=== PATIENT | female | born 1970 | race Caucasian/White ===

== ENCOUNTER 2017-03-28 21:03 | Observation (INO) | payer OTHER, BC ==
--- NOTE | 2017-03-28 21:54 | EDM.PDOC ---
ED HPI GENERAL MEDICAL PROBLEM - General Chief Complaint: Cardiovascular Problem Stated Complaint: RACING HEART Time Seen by Provider: 03/28/17 21:14 Source of Information: Reports: Patient, RN Notes Reviewed History Limitations: Reports: No Limitations - History of Present Illness INITIAL COMMENTS - FREE TEXT/NARRATIVE: The patient states that she started feeling poorly around , 03/18/2017, with nausea, chills, feeling feverish, even though her temperature was normal. She was seen at the walk-in clinic on 03/21/2017, where blood work was done, and was apparently normal. The patient was diagnosed with a viral illness. Hydration and vitamin C were recommended. If her symptoms do not improve, she was to follow-up with her PCP, Eboni Grant. The patient states that she did as she was instructed, but her symptoms did not improve. She noticed that her urine output seemed low, despite aggressive hydration. She was then seen by Jerilyn Brown this past 03/23/2017. No tests were done, but oral magnesium was recommended because, according to the patient , Ms. Brown speculated that the patient's magnesium was low. The patient states that she continued to do as instructed, but her symptoms continued, therefore she saw her PCP, Eboni Grant, this past Wednesday, 2016. She states that while in the lobby, she developed the sensation of her heart racing, lasting about 30-45 seconds. It occurred again in the examination room, lasting about 1 minute. An ECG was performed, which was reportedly normal. Blood work was performed which apparently demonstrated hypokalemia. A 48 hour Holter monitor was placed, which the patient turned in today. The patient states that she continues to have episodes of heart racing, often lasting about 1.5 minutes. She also feels her body jerking. She feels cold. Her tongue has been tingling. She has had tingling of her fingers and hands when her heart rate feels elevated. She feels like she is walking on rubber legs. No prior similar symptoms. The patient reports that she has a history of suspected asthma, and is prescribed a Ventolin MDI. Her last use was 03/23/2017. Here in the ED, it is noted that the patient's oxygen saturation is 100% on room air. Treatments COMMODITIES BROKER: Reports: Aspirin - Related Data Allergies Allergy/AdvReac Type Severity Reaction Status Date / Time bacitracin Allergy Rash Verified 03/28/17 21:20 [From Neosporin ([id number])] bacitracin zinc Allergy Rash Verified 03/28/17 21:20 [From Neosporin ([id number])] neomycin sulfate Allergy Rash Verified 03/28/17 21:20 [From Neosporin ([id number])] polymyxin B Allergy Rash Verified 03/28/17 21:20 [From Neosporin ([id number])] Home Meds: Home Meds SUMAtriptan [Imitrex Pen Injector Kit] 6 mg SQ ASDIRECTED #1 ml 07/14/14 [Rx] Albuterol Inhaler. 2 inh PO Q4HR PRN 07/19/16 [History] Potassium Chloride 10 meq PO DAILY 03/28/17 [History] atorvaSTATin Calcium [Atorvastatin Calcium] 10 mg PO DAILY 03/28/17 [History] Past Medical History Cardiovascular History: Reports: High Cholesterol Respiratory History: Reports: Asthma (suspected, not confirmed) Oncologic (Cancer) History: Reports: Malignant Melanoma (left face) - Past Surgical History HEENT Surgical History: Reports: Oral Surgery ([place] teeth extraction) Female Surgical History: Reports: Tubal Ligation Oncologic Surgical History: Reports: Other (See Below) (Melanoma excised from left face May 2007) Social & Family History - Family History Family Medical History: Noncontributory - Tobacco Use Smoking Status *Q: Current Every Day Smoker Years of Tobacco use: 15 Packs/Tins Daily: 0.3 Packs/Tins Daily Comment: Down from 07/13 ppd - Caffeine Use Caffeine Use: Reports: Soda - Alcohol Use Alcohol Use History: Yes Days Per Week of Alcohol Use: 1 Number of Drinks Per Day: 0 Total Drinks Per Week: 0 Alcohol Use Frequency: Rarely - Recreational Drug Use Recreational Drug Use: No - Living Situation & Occupation Living situation: Reports: (), with Family (daughter) Occupation: Employed ([employer]) ED ROS GENERAL - Review of Systems Review Of Systems: See Below Constitutional: Reports: Chills, Malaise HEENT: Reports: No Symptoms Respiratory: Reports: No Symptoms Cardiovascular: Reports: Palpitations Endocrine: Reports: No Symptoms GI/Abdominal: Reports: Nausea : Reports: No Symptoms Musculoskeletal: Reports: No Symptoms Skin: Reports: No Symptoms Neurological: Reports: Tingling, Weakness Psychiatric: Reports: No Symptoms Hematologic/Lymphatic: Reports: No Symptoms Immunologic: Reports: No Symptoms ED EXAM, GENERAL - Physical Exam Exam: See Below Exam Limited By: No Limitations General Appearance: Alert, WD/WN, No Apparent Distress, Anxious Eye Exam: Bilateral Eye: Normal Inspection Ears: Normal External Exam, Hearing Grossly Normal Nose: Normal Inspection, No Blood Throat/Mouth: Normal Inspection, Normal Lips, Normal Voice, No Airway Compromise Head: Atraumatic, Normocephalic Neck: Normal Inspection, Full Range of Motion Respiratory/Chest: No Respiratory Distress, Lungs Clear, Normal Breath Sounds, No Accessory Muscle Use Cardiovascular: Normal Peripheral Pulses, Regular Rate, Rhythm, No Gallop, No JVD, No Murmur, No Rub Peripheral Pulses: 4+: Radial (L), Radial (R) GI/Abdominal: Normal Bowel Sounds, Soft, Non-Tender, No Organomegaly, No Distention, No Abnormal Bruit, No Mass (Female) Exam: Deferred Rectal (Female) Exam: Deferred Back Exam: Normal Inspection, Full Range of Motion, NT Extremities: Normal Inspection, Normal Range of Motion, No Pedal Edema, Normal Capillary Refill Neurological: Alert, Oriented, Normal Cognition, No Motor/Sensory Deficits Psychiatric: Normal Affect, Anxious Skin Exam: Warm, Intact, Normal Color, No Rash, Diaphoretic Lymphatic: No Adenopathy EKG INTERPRETATION EKG Date: 03/28/17 Time: 21:26 Rhythm: NSR Rate (Beats/Min): 92 [place]: Normal P-Wave: Present QRS: Normal ST-T: Normal QT: Normal Comparison: NA - No Prior EKG Course - Vital Signs Last Recorded V/S: Last Vital Signs Temp 36.2 C 03/28/17 21:12 Pulse 66 03/29/17 01:44 Resp 20 03/29/17 01:44 BP 125/70 03/29/17 01:44 Pulse Ox 99 03/29/17 01:44 Orthostatic Blood Pressure [ 120/85 Standing] Orthostatic Blood Pressure [ 119/83 Supine] - Orders/Labs/Meds Orders: Active Orders 24 hr Category Date Time Status EKG 12 Lead [EKG Documentation Completion] [RC] STAT Care 03/28/17 21:32 Active Orthostatic Vital Signs [RC] STAT Care 03/28/17 21:46 Active Orthostatic Vital Signs [RC] STAT Care 03/28/17 22:38 Active Orthostatic Vital Signs [RC] STAT Care 03/28/17 23:58 Active Chest 2V [CR] Stat Exams 03/28/17 21:46 Taken CULTURE URINE [RM] Stat Lab 03/29/17 00:37 Received Medication Orders Hydromorphone HCl (Dilaudid) 1 mg IVPUSH Q4H PRN PRN Reason: Pain Lorazepam (Ativan) 1 mg IVPUSH Q4H PRN PRN Reason: Anxiety Labs: Laboratory Tests 03/28/17 03/28/17 03/28/17 Range/Units 21:18 21:18 21:18 WBC 10.71 H (3.98-10.04) K/mm3 RBC 5.21 (3.98-5.22) M/mm3 Hgb 15.8 H (11.2-15.7) gm/L Hct 45.9 H (34.1-44.9) % MCV 88.1 (79.4-94.8) fl MCH 30.3 (25.6-32.2) pg MCHC 34.4 (32.2-35.5) g/dl RDW Std Deviation 42.7 (36.4-46.3) fL Plt Count 355 (182-369) K/mm3 MPV 11.9 (9.4-12.3) fl Neutrophils % (Manual) 75 H (40-60) % Band Neutrophils % 0 (0-10) % Lymphocytes % (Manual) 14 L (20-40) % Atypical Lymphs % 3 % Monocytes % (Manual) 6 (2-10) % Eosinophils % (Manual) 1 (0.7-5.8) % Basophils % (Manual) 1 (0.1-1.2) Platelet Estimate Adequate Plt Morphology Comment Normal RBC Morph Comment Normal PT 9.9 (8.0-13.0) SECONDS INR 0.91 APTT 25 (22-36) SECONDS D-Dimer, Quantitative < 0.19 L (0.19-0.59) mg/L Puncture Site ABG pH (7.35-7.45) ABG pCO2 (35.0-45.0) mmHg ABG pO2 (80.0-100.0) mmHg ABG HCO3 (22.0-26.0) meq/L ABG O2 Saturation (96.0-97.0) % ABG Base Excess (-2-2.0) A-a Gradient mmHg O2 Delivery Device Oxygen Flow Rate FiO2 (21.00-100.00) % Sodium 140 (136-145) mEq/L Potassium 3.3 L (3.5-5.1) mEq/L Chloride 106 (98-107) mEq/L Carbon Dioxide 25 (21-32) mEq/L Anion Gap 12.3 (5-15) BUN 9 (7-18) mg/dL Creatinine 0.9 (0.55-1.02) mg/dL Est Cr Clr Drug Dosing 75.95 mL/min Estimated GFR (MDRD) > 60 (>60) mL/min BUN/Creatinine Ratio 10.0 L (14-18) Glucose 119 H (74-106) mg/dL Calcium 9.1 (8.5-10.1) mg/dL Magnesium 1.9 (1.8-2.4) mg/dl Total Bilirubin 0.3 (0.2-1.0) mg/dL AST 20 (15-37) U/L ALT 22 (14-59) U/L Alkaline Phosphatase 82 (46-116) U/L Troponin I < 0.017 (0.00-0.056) ng/mL NT-Pro-B Natriuret Pep 46 (0-125) pg/mL Total Protein 7.5 (6.4-8.2) g/dl Albumin 3.8 (3.4-5.0) g/dl Globulin 3.7 gm/dL Albumin/Globulin Ratio 1.0 (1-2) TSH 3rd Generation 2.491 (0.358-3.74) uIU/mL Urine Color (Yellow) Urine Appearance (Clear) Urine pH (5.0-8.0) Ur Specific [place] (1.005-1.030) Urine Protein (Negative) Urine Glucose (UA) (Negative) Urine Ketones (Negative) Urine Occult Blood (Negative) Urine Nitrite (Negative) Urine Bilirubin (Negative) Urine Urobilinogen (0.2-1.0) Ur Leukocyte Esterase (Negative) Urine RBC (0-5) /hpf Urine WBC (0-5) /hpf Ur Epithelial Cells (0-5) /hpf Calcium Oxalate Crystal (NONE) Amorphous Sediment (NOT SEEN) /hpf Urine Bacteria (FEW) /hpf Urine Mucus (FEW) /hpf Urine HCG, Qual (NEGATIVE) 03/28/17 03/28/17 03/28/17 Range/Units 21:46 23:20 23:20 WBC (3.98-10.04) K/mm3 RBC (3.98-5.22) M/mm3 Hgb (11.2-15.7) gm/L Hct (34.1-44.9) % MCV (79.4-94.8) fl MCH (25.6-32.2) pg MCHC (32.2-35.5) g/dl RDW Std Deviation (36.4-46.3) fL Plt Count (182-369) K/mm3 MPV (9.4-12.3) fl Neutrophils % (Manual) (40-60) % Band Neutrophils % (0-10) % Lymphocytes % (Manual) (20-40) % Atypical Lymphs % % Monocytes % (Manual) (2-10) % Eosinophils % (Manual) (0.7-5.8) % Basophils % (Manual) (0.1-1.2) Platelet Estimate Plt Morphology Comment RBC Morph Comment PT (8.0-13.0) SECONDS INR APTT (22-36) SECONDS D-Dimer, Quantitative (0.19-0.59) mg/L Puncture Site Rt radial ABG pH 7.45 (7.35-7.45) ABG pCO2 32.9 L (35.0-45.0) mmHg ABG pO2 74.0 L (80.0-100.0) mmHg ABG HCO3 22.4 (22.0-26.0) meq/L ABG O2 Saturation 96.0 (96.0-97.0) % ABG Base Excess -0.4 (-2-2.0) A-a Gradient 20 mmHg O2 Delivery Device Room air Oxygen Flow Rate 0.0 FiO2 0.00 L (21.00-100.00) % Sodium (136-145) mEq/L Potassium (3.5-5.1) mEq/L Chloride (98-107) mEq/L Carbon Dioxide (21-32) mEq/L Anion Gap (5-15) BUN (7-18) mg/dL Creatinine (0.55-1.02) mg/dL Est Cr Clr Drug Dosing mL/min Estimated GFR (MDRD) (>60) mL/min BUN/Creatinine Ratio (14-18) Glucose (74-106) mg/dL Calcium (8.5-10.1) mg/dL Magnesium (1.8-2.4) mg/dl Total Bilirubin (0.2-1.0) mg/dL AST (15-37) U/L ALT (14-59) U/L Alkaline Phosphatase (46-116) U/L Troponin I (0.00-0.056) ng/mL NT-Pro-B Natriuret Pep (0-125) pg/mL Total Protein (6.4-8.2) g/dl Albumin (3.4-5.0) g/dl Globulin gm/dL Albumin/Globulin Ratio (1-2) TSH 3rd Generation (0.358-3.74) uIU/mL Urine Color Yellow (Yellow) Urine Appearance Clear (Clear) Urine pH 6.5 (5.0-8.0) Ur Specific [place] 1.025 (1.005-1.030) Urine Protein 1+ H (Negative) Urine Glucose (UA) Negative (Negative) Urine Ketones Negative (Negative) Urine Occult Blood Trace-lysed H (Negative) Urine Nitrite Negative (Negative) Urine Bilirubin Negative (Negative) Urine Urobilinogen 0.2 (0.2-1.0) Ur Leukocyte Esterase 1+ H (Negative) Urine RBC 0-5 (0-5) /hpf Urine WBC 0-5 (0-5) /hpf Ur Epithelial Cells 0-5 (0-5) /hpf Calcium Oxalate Crystal Few H (NONE) Amorphous Sediment Moderate H (NOT SEEN) /hpf Urine Bacteria Many H (FEW) /hpf Urine Mucus Many H (FEW) /hpf Urine HCG, Qual Negative (NEGATIVE) Meds: Medications Generic Name Dose Route Start Last Admin Trade Name Freq PRN Reason Stop Dose Admin Hydromorphone HCl 1 mg 03/29/17 01:51 Dilaudid IVPUSH Q4H PRN Pain Lorazepam 1 mg 03/29/17 01:51 Ativan IVPUSH Q4H PRN Anxiety Discontinued Medications Generic Name Dose Route Start Last Admin Trade Name Freq PRN Reason Stop Dose Admin Lidocaine HCl Confirm 03/28/17 22:06 Xylocaine-Mpf 1% Administered 03/28/17 22:07 Dose 2 mls @ as directed .ROUTE .STK-MED ONE Sodium Chloride 1,000 mls @ 999 mls/hr 03/28/17 22:38 03/28/17 22:42 Normal Saline IV 03/28/17 23:38 999 mls/hr ONETIME ONE Administration Sodium Chloride 1,000 mls @ 999 mls/hr 03/28/17 23:58 03/29/17 00:05 Normal Saline IV 03/29/17 00:58 999 mls/hr ONETIME ONE Administration Trimethoprim/Sulfamethoxazole 1 tab 03/29/17 00:41 03/29/17 00:58 Septra Ds PO 03/29/17 00:42 1 tab ONETIME ONE Administration - Re-Assessments/Exams Free Text/Narrative Re-Assessment/Exam: 03/28/17 22:30 Two-view chest radiograph appears to be grossly normal. Cardiac silhouette is within normal limits. No pulmonary vascular congestion. No pleural effusions. No focal infiltrate. No pneumothorax. Formal read per the Radiologist pending. The patient's ABG demonstrates a chronic respiratory alkalosis, fully compensated. 03/28/17 22:39 The patient is orthostatic. I have ordered a 1 L bolus of normal saline, and will repeat orthostatics after the fluid bolus. 03/28/17 23:59 Following 1 L normal saline infusion, orthostatics were checked, and the patient is still orthostatic, with a significant increase in her heart rate when rising from a supine position. I have ordered a second liter of normal saline, to be followed by orthostatics. 03/29/17 00:25 Following a second liter bolus of normal saline, the patient is still orthostatic. I am going to recommend admission to the hospital for continued IV hydration. 03/29/17 00:39 The patient's urinalysis is negative for nitrites, 1+ leukocyte esterase, 0-5 WBCs, 0-5 epithelial cells, and many bacteria. These mixed results are not clearly indicative of a UTI, however, do warrant treatment. I have ordered a urine culture, and will start the patient on oral Bactrim. 03/29/17 00:56 Test results discussed with the patient and her . As above, the patient MAY have a UTI, which we will treat with oral Bactrim, and she has persistent orthostasis, despite 2 L of IV fluid, LIKELY due to intravascular depletion, as she has had low urine output, and her urine is dark in color, although could conceivably be due to autonomic dysfunction. The patient is also suffering from hyperventilation syndrome, MOST LIKELY due to anxiety, as other known metabolic causes for hyperventilation syndrome, including metabolic acidosis, hypocalcemia , hypoglycemia, hyperthyroidism, liver failure, severe anemia, sepsis, acute coronary event, pneumothorax, pneumonia, dysrhythmia, PE, and CHF have been ruled out. I am recommending that the patient be placed into observation overnight for IV hydration, continue oral Bactrim, and if her symptoms persist, that she follow-up with her PCP to discuss long-term treatment of anxiety. Case discussed with Dr. Duenas at 00:54. He agrees to place the patient into observation overnight for IV hydration and checking statics. He asked that I write bridge orders. Departure - Departure Time of Disposition: 01:00 Disposition: Refer to Observation Condition: Fair Clinical Impression: Orthostasis, UTI (urinary tract infection), Hyperventilation syndrome - My Orders Last 24 Hours: My Active Orders 03/28/17 21:32 EKG 12 Lead [EKG Documentation Completion] [RC] STAT 03/28/17 21:46 Orthostatic Vital Signs [RC] STAT Chest 2V [CR] Stat 03/28/17 22:38 Orthostatic Vital Signs [RC] STAT 03/28/17 23:58 Orthostatic Vital Signs [RC] STAT 03/29/17 00:37 CULTURE URINE [RM] Stat - Assessment/Plan Last 24 Hours: My Active Orders 03/28/17 21:32 EKG 12 Lead [EKG Documentation Completion] [RC] STAT 03/28/17 21:46 Orthostatic Vital Signs [RC] STAT Chest 2V [CR] Stat 03/28/17 22:38 Orthostatic Vital Signs [RC] STAT 03/28/17 23:58 Orthostatic Vital Signs [RC] STAT 03/29/17 00:37 CULTURE URINE [RM] Stat
[2017-03-28] MEDS ORDERED: Lidocaine 1% 2 ML ONE (22:06)
[2017-03-28] MEDS ORDERED: Sodium Chloride 0.9% 1,000 ML IV ONE ×2 (22:38→23:58)
[2017-03-29] MEDS ORDERED: Sulfamethoxazole/Trimethoprim 800-160 MG Tab PO ONE (00:41)
[2017-03-29] MEDS ORDERED: LORazepam 2 MG/ML MDV IVPUSH PRN ×2 (01:51→07:23)
[2017-03-29] MEDS: Sodium Chloride 0.9% 1,000 ML IV SCH ×2 (02:23→06:37)
[2017-03-29] MEDS: HYDROmorphone 1 MG/ML Syringe IVPUSH PRN ×2 (02:23→11:34)
[2017-03-29] MEDS ORDERED: ALBUTEROL PO PRN (07:19)
--- NOTE | 2017-03-29 07:19 | PCM.HP ---
H&P History of Present Illness - General Date of Service: 03/29/17 Admit Problem/Dx: Admission Diagnosis/Problem Admission Diagnosis/Problem Urinary tract infection Source of Information: Patient, Old Records, Provider, RN Notes Reviewed History Limitations: Reports: No Limitations - History of Present Illness Initial Comments - Free Text/Narative: This is a 46-year-old white female with past medical history of her cholesterolemia, asthma, history of skin cancer, history of migraines who comes here due to not feeling well that started 2 weeks ago. Her symptoms are associated with nausea, chills, and subjective fever. She was initially seen this past Wednesday on the and was told she had viral illness. She was advised to drink fluids and take vitamin C however her symptoms did not improve. Patient admits to decreased urine output despite aggressive hydration. She followed up with another provider on 03/23/2017. No additional testing done but at that time it was felt that she may be low on magnesium. This past Wednesday, she again was seen in the clinic wherein she experienced heart palpitation lasting about 30-45 seconds. She had another episode while she was in examination room. Her initial workup at that time showed a normal ECG however her lab work showed low potassium level. A 48 hour holter monitor was ordered to monitor heart rate but she was not able to turn it in due to worsening symptoms. Patient presents to the emergency department with complaints of episodic heart palpitation. She feels abnormal body sensation and also feels cold. There is some numbness and tingling associated localized to her thumb, fingers and hands. She states she feels like she is "walking on rubber legs". Patient denies any history of similar symptoms in the past. Patient denies any recent prescription medications abuse. No history of autoimmune disease. No history of cardiac dysrhythmia. She does not drink coffee but drinks about 2 L of regular coke or more a day. She denies taking any prescription stimulants or illicit drugs. She is not an active smoker. On presentation to the emergency department she was found positive for orthostasis. She was also observed with intermittent burst in heart rate as high as 140s to 170s. Patient received initial treatment in the emergency department before she was sent to the floor for further management. Her initial workup in emergency department shows a CBC remarkable for WBC of 10.71, hemoglobin of 15.8, hematocrit of 45.9, neutrophils of 75% and lymphocyte of 14%. Her d-dimer is less than 0.19. Her ABG shows pH of 7.45, PCO2 32.9, PO2 of 74, bicarbonate of 22.4, O2 sat of 96% on room air. Her chemistry is remarkable for potassium of 3.3, glucose of 119, free T4 of 1.47, free T3 of 5.42, total T3 of 181 and TSH of 2.491. Her UA is not impressive for urinary tract infection. UDS is positive for opiates consistent of what she had gotten on this admission. Her chest x-ray report reads nothing acute is identified. Her initial EKG reads normal sinus rhythm. Patient was admitted overnight for medical management of panic attack, episode a tachycardia and orthostasis. She is full code. - Related Data Allergies/Adverse Reactions: Allergies Allergy/AdvReac Type Severity Reaction Status Date / Time bacitracin Allergy Rash Verified 03/28/17 21:20 [From Neosporin ([id number])] bacitracin zinc Allergy Rash Verified 03/28/17 21:20 [From Neosporin ([id number])] neomycin sulfate Allergy Rash Verified 03/28/17 21:20 [From Neosporin ([id number])] polymyxin B Allergy Rash Verified 03/28/17 21:20 [From Neosporin ([id number])] Home Medications: Home Meds SUMAtriptan [Imitrex Pen Injector Kit] 6 mg SQ ASDIRECTED #1 ml 07/14/14 [Rx] Albuterol Inhaler. 2 inh PO Q4HR PRN 07/19/16 [History] Potassium Chloride 10 meq PO DAILY 03/28/17 [History] atorvaSTATin Calcium [Atorvastatin Calcium] 10 mg PO DAILY 03/28/17 [History] Magnesium 250 mg PO DAILY 03/29/17 [History] Propranolol HCl [Propranolol] 80 mg PO DAILY #30 cap.sa.24h 03/30/17 [Rx] Past Medical History - Past Health History Medical/Surgical History: Denies Medical/Surgical History Cardiovascular History: Reports: High Cholesterol Respiratory History: Reports: Asthma (suspected, not confirmed) [employer] History: Reports: Musculoskeletal History: Reports: Back Pain, Chronic Neurological History: Reports: Migraines Oncologic (Cancer) History: Reports: Malignant Melanoma (left face) Other Oncologic History: had mole removed from left side of face - Past Surgical History HEENT Surgical History: Reports: Oral Surgery ([place] teeth extraction) Female Surgical History: Reports: Tubal Ligation Oncologic Surgical History: Reports: Other (See Below) (Melanoma excised from left face May 2007) Social & Family History - Family History Family Medical History: Noncontributory - Tobacco Use Smoking Status *Q: Current Every Day Smoker Years of Tobacco use: 15 Packs/Tins Daily: 0.3 Used Tobacco, but Quit: No Second Hand Smoke Exposure: No - Caffeine Use Caffeine Use: Reports: Soda Other Caffeine Use: reports that she drinks 2 liters of coke every day - Alcohol Use Days Per Week of Alcohol Use: 1 Number of Drinks Per Day: 0 Total Drinks Per Week: 0 - Recreational Drug Use Recreational Drug Use: No - Living Situation & Occupation Living situation: Reports: (), with Family (daughter) Occupation: Employed ([employer]) H&P Review of Systems - Review of Systems: Review Of Systems: See Below General: Denies: Chills, Malaise, Fatigue HEENT: Reports: No Symptoms Pulmonary: Denies: Shortness of Breath Cardiovascular: Denies: Chest Pain, Palpitations, Dyspnea on Exertion, Orthopnea , Lightheadedness, Syncope, Blood Pressure Problem Gastrointestinal: Denies: Abdominal Pain, Nausea, Vomiting Genitourinary: Reports: No Symptoms Musculoskeletal: Reports: No Symptoms Skin: Denies: Cyanosis, Pallor, Diaphoresis Psychiatric: Denies: Confusion, Depression, Anxiety, Agitation, Cravings, Hallucinations, Suicidal Ideation Neurological: Denies: Confusion, Numbness, Pre-Existing Deficit, Seizure, Syncope, Tingling, Tremors, Trouble Speaking, Difficulty Walking, Weakness, Change in Speech, Gait Disturbance Hematologic/Lymphatic: Reports: No Symptoms Immunologic: Reports: No Symptoms Exam - Exam Exam: See Below - Vital Signs Vital Signs: Last Vital Signs Temp 36.2 C 03/28/17 21:12 Pulse 66 03/29/17 01:44 Resp 20 03/29/17 01:44 BP 125/70 03/29/17 01:44 Pulse Ox 99 03/29/17 01:44 Weight: 88.025 kg - Exam General: Alert, Oriented, Cooperative, Mild Distress HEENT: Conjunctiva Clear, EACs Clear, EOMI, Hearing Intact, Mucosa Moist & [place] , Nares Patent, Normal Nasal Septum, Posterior Pharynx Clear, Pupils Equal, Pupils Reactive, TMs Clear, Other (poor dentition) Neck: Supple, Trachea Midline, JVD Lungs: Clear to Auscultation, Normal Respiratory Effort Cardiovascular: Regular Rate, Regular Rhythm GI/Abdominal Exam: Normal Bowel Sounds, Soft, Non-Tender, No Organomegaly, No Distention, No Abnormal Bruit, No Mass (Female) Exam: Deferred Rectal (Female) Exam: Deferred Back Exam: Normal Inspection Extremities: Normal Inspection, Normal Range of Motion, Non-Tender, No Pedal Edema, Normal Capillary Refill Peripheral Pulses: 3+: Posterior Tibial (L), Posterior Tibial (R), Dorsalis Pedis (L), Dorsalis Pedis (R) Skin: Warm, Dry, Intact Neuro Extensive - Mental Status: Oriented x3, Normal Cognition, Memory Intact Neuro Extensive - Motor, Sensory, Reflexes: CN II-XII Intact, Normal Gait Psychiatric: Alert, Normal Affect, Normal Mood. No: Anxious, Depressed, Agitated, Suicidal Ideation, Homicidal Ideation, Hallucinations, Withdrawal Symptoms - Patient Data Lab Results Last 24 hrs: Laboratory Results - last 24 hr 03/29/17 Range/Units 06:15 Sodium 143 (136-145) mEq/L Potassium 3.7 (3.5-5.1) mEq/L Chloride 111 H (98-107) mEq/L Carbon Dioxide 22 (21-32) mEq/L Anion Gap 13.7 (5-15) BUN 7 (7-18) mg/dL Creatinine 0.7 (0.55-1.02) mg/dL Est Cr Clr Drug Dosing 97.65 mL/min Estimated GFR (MDRD) > 60 (>60) mL/min BUN/Creatinine Ratio 10.0 L (14-18) Glucose 99 (74-106) mg/dL Calcium 8.1 L (8.5-10.1) mg/dL Result Diagrams: 03/30/17 06:25 03/30/17 06:25 EKG INTERPRETATION EKG Date: 03/28/17 Time: 21:26 Rhythm: NSR Rate (Beats/Min): 92 [place]: Normal P-Wave: Present QRS: Normal ST-T: Normal QT: Normal Comparison: NA - No Prior EKG *Q Meaningful Use (ADM) - VTE *Q VTE Criteria *Q: - Stroke *Q Stroke Criteria *Q: - AMI *Q AMI Criteria *Q: Problem List Initiated/Reviewed/Updated: Yes Orders Last 24hrs: Active Orders 24 hr Category Date Time Status Patient Status [ADT] Routine ADT 03/29/17 01:23 Active Activity as Tolerated [RC] .Routine Care 03/29/17 02:05 Active Orthostatic Vital Signs [RC] ASDIRECTED Care 03/29/17 08:00 Active General [Regular Diet] [DIET] Diet 03/29/17 Breakfast Active FREE T3 [REF] Routine Lab 03/29/17 02:03 Received TOTAL T3 [REF] Routine Lab 03/29/17 02:04 Received HYDROmorphone [Dilaudid] Med 03/29/17 01:51 Active 1 mg IVPUSH Q4H PRN LORazepam [Ativan] Med 03/29/17 01:51 Active 1 mg IVPUSH Q4H PRN Sodium Chloride 0.9% [Normal Saline] 1,000 ml Med 03/29/17 02:15 Active IV ASDIRECTED Sulfamethoxazole/Trimethoprim [Septra DS] Med 03/29/17 09:00 Active 1 tab PO BID Code Status [Resuscitation Status] Routine Resus Stat 03/29/17 02:04 Ordered Medication Orders Hydromorphone HCl (Dilaudid) 1 mg IVPUSH Q4H PRN PRN Reason: Pain Last Admin: 03/29/17 02:23 Dose: 1 mg Sodium Chloride (Normal Saline) 1,000 mls @ 250 mls/hr IV ASDIRECTED LAVINIA Last Admin: 03/29/17 06:37 Dose: 250 mls/hr Infusion: 03/29/17 06:23 Dose: 250 mls/hr Admin: 03/29/17 02:23 Dose: 250 mls/hr Lorazepam (Ativan) 1 mg IVPUSH Q4H PRN PRN Reason: Anxiety Trimethoprim/Sulfamethoxazole (Septra Ds) 1 tab PO BID LAVINIA Assessment/Plan Comment:: Assessment/Plan: Acute: Panic Attack - Risk factors: Likely Anxiety/Emotional Stress and Possible Medication Side effects - She was shaky and diaphoretic last night per nurse - She did not have rapid breathing - She has denies any underlying psych issues - PRN anti-anxiolytic Orthostasis Hypotension - Performed and documented while in ED - Received 2L NS for volume expansion - She is not on antihypertesive medications - Her UA shows mild-moderately concentrated - Her BP have been stable Episodic Tachycardia - Racing heart rate in the 140s and as high as 170s with activity or ambulation - Recently had holter monitor done but left it at home - Risk factors: Elevated FT4/FT3 & T3 level, Imitrex side effects and heavy caffeine intake (She admits to drinking 2L or more of regular coke everyday) - Initial EKG shows NS with HR 92 - Trial of Propranolol 60 mg po x1 now Abnormal Thyroid Panel - FT4 1.47 (slightly elevated), FT3 Significantly elevated), TT3 (slightly elevated), TSH is normal - Consider Brain MRI to r/o Pituitary Tumor - Unlikely Graves or Solitary Adenoma or Exogenous due to normal TSH level - DDx: Impaired Sensitivity to Thyroid Hormone - Additional work up defer outpatient S/p Mild Hypokalemia - K 3.3 --> 3.7 this am - Received supplement in ED Recent Viral Illness - Could be contributing to her abnormal thyroid panel - Supportive Care Chronic: HTN Asthma Hx/o Migraines BHAKTA Hx/o Skin cancer Nicotine Dependence Plan: Admitted under OBS last night W/ Tele Resume Home Meds Routine AM Labs PT/OT consult PRN Meds for symptomatic control Additional orders as above SW/CM for d/c planning Code status:1 Informed patient if she send her holter monitor to [facility] so they can read it. Advised to stop imitrex and will start her on propranolol for rate control and should also help with her migraines.
[2017-03-29] MEDS ORDERED: Metoprolol Tartrate 5 MG/5 ML SDV IVPUSH PRN (07:23)
[2017-03-29] MEDS ORDERED: hydrALAZINE 20 MG/ML SDV IVPUSH PRN (07:23)
[2017-03-29] MEDS ORDERED: Ondansetron 4 MG/2 ML SDV IV PRN (07:24)
[2017-03-29] MEDS ORDERED: Acetaminophen/HYDROcodone 325-5 MG Tab PO PRN (07:24)
[2017-03-29] MEDS ORDERED: Polyethylene Glycol 3350 Powder 17 GM Packet PO PRN (07:24)
[2017-03-29] MEDS ORDERED: Docusate Sodium 100 MG Cap PO PRN (07:24)
[2017-03-29] MEDS ORDERED: Acetaminophen 325 MG Tab PO PRN (07:24)
[2017-03-29] MEDS ORDERED: Bisacodyl 5 MG Tab PO PRN (07:24)
[2017-03-29] MEDS ORDERED: Albuterol/Ipratropium 3.0-0.5 MG/3 ML Neb Soln NEB PRN (07:24)
[2017-03-29] MEDS ORDERED: LORazepam 2 MG/ML MDV IV PRN (07:24)
[2017-03-29] MEDS ORDERED: Promethazine 12.5 MG in Sodium Chloride 0.9% 50 ML IV PRN (07:24)
[2017-03-29] MEDS ORDERED: SUMATRIPTAN 6 MG SQ SCH (07:30)
--- NOTE | 2017-03-29 08:00 | CR ---
Chest: Two views of the chest were obtained. Comparison: No prior chest x-ray. Heart size and mediastinum are within normal limits. Lungs are clear. Bony structures are within normal limits. Impression: 1. Nothing acute is identified on two-view chest x-ray. Diagnostic code #1
[2017-03-29] MEDS ORDERED: POTASSIUM CHLORIDE 10 MEQ PO SCH (09:00)
[2017-03-29] MEDS: Sulfamethoxazole/Trimethoprim 800-160 MG Tab PO SCH ×2 (09:28→21:05)
[2017-03-29] MEDS: ATORVASTATIN CALCIUM 10 MG PO SCH (09:35)
[2017-03-29] MEDS ORDERED: Propranolol 80 MG Cap.ER PO ONE (12:47)
[2017-03-29] MEDS ORDERED: Propranolol 60 MG Cap.ER PO ONE ×2 (13:15→21:00)
--- NOTE | 2017-03-29 16:59 | PCM.SN ---
- Free Text/Narrative Note: Patient received 60 mg of Inderal LA one time this afternoon. With activity and ambulation, her HR went up as high as 115 but not in the 140s or even 170s. She remains asymptomatic. Will increase her dose to 80 mg po daily for tomorrow. Her brought in her holter monitor at [facility] to be read.
[2017-03-29] MEDS ORDERED: Temazepam 15 MG Cap PO PRN (21:00)
[2017-03-30 08:25] VITALS: BP 126/71
[2017-03-30] MEDS ORDERED: Magnesium Oxide 400 MG Tab PO SCH (09:00)
[2017-03-30] MEDS ORDERED: Propranolol 80 MG Cap.ER PO SCH (09:00)
[2017-03-30] MEDS ORDERED: POTASSIUM CHLORIDE 10 MEQ PO SCH (09:00)
[2017-03-30] MEDS ORDERED: Sodium Chloride 0.9% 10 ML SDV IV ONE (10:19)
[2017-03-30] MEDS ORDERED: Gadobenate Dimeglumine 529 MG/ML 20 ML SDV IVPUSH ONE (10:19)
--- NOTE | 2017-03-30 11:55 | MR ---
MRI brain with pituitary (with and without contrast) Technique: T1 sagittal; T2, T2 FLAIR, T1 and diffusion axial; T1 FLAIR coronal; thin T1 sagittal and coronal images through the pituitary gland were repeated after gadolinium administration. Post-gadolinium T1 axial and post-gadolinium T1 FLAIR coronal images were obtained. Comparison: Previous MRI brain dated 06/27/12. Findings: Significant motion artifact is seen throughout the exam. Ventricles along with basal cisterns and sulci over the convexities are within normal limits for the patient's age. No abnormal signal is identified within the brain parenchyma. Normal signal void is seen within the major cerebral arteries within the skull base. No acute diffusion abnormalities are seen. Pituitary gland appears normal. Infundibulum of the pituitary gland is midline. Cavernous sinuses are within normal limits. No abnormal enhancement is seen within the brain parenchyma. Impression: 1. Motion artifact. Within this limitation, no abnormality is appreciated on MRI study of the brain, no pituitary abnormality is identified. Diagnostic code #2
[2017-03-30] MEDS: ATORVASTATIN CALCIUM 10 MG PO SCH (12:09)
[2017-03-30] MEDS ORDERED: Metoprolol Tartrate 5 MG/5 ML SDV IVPUSH ONE (12:11)
[2017-03-30] MEDS ORDERED: Midodrine 5 MG Tab PO ONE (12:13)
[2017-03-30] MEDS ORDERED: Sodium Chloride 0.9% 250 ML IV ONE (12:13)
[2017-03-30] MEDS ORDERED: Diphtheria,Pertussis(Acell),Tetanus Vaccine 0.5 ML SDV IM ONE (12:14)
[2017-03-30] MEDS: Sulfamethoxazole/Trimethoprim 800-160 MG Tab PO SCH (12:29)
--- NOTE | 2017-03-30 12:44 | PCM.DCSUM1 ---
Discharge Summary - Hospital Course Brief History: This is a 46-year-old white female with past medical history of cholesterolemia, asthma, history of skin cancer, history of migraines who comes here due to not feeling well that started 2 weeks ago. She was admitted for medical treatment of panic attack. - Discharge Data Discharge Date: 03/30/17 Discharge Disposition: Home, Self-Care 01 Condition: Good - Discharge Diagnosis/Problem(s) (1) Panic attack due to exceptional stress SNOMED Code(s): 60300583 ICD Code: F41.0 - PANIC DISORDER WITHOUT AGORAPHOBIA; F43.0 - ACUTE STRESS REACTION Status: Resolved (2) Sinus aida-tachy syndrome SNOMED Code(s): 41493633 ICD Code: I49.5 - SICK SINUS SYNDROME Status: Resolved (3) Orthostasis SNOMED Code(s): 934531856, 500035453 ICD Code: I95.1 - ORTHOSTATIC HYPOTENSION Status: Resolved (4) Abnormal thyroid function test Status: Acute - Patient Summary/Data Operative Procedure(s) Performed: None Complications: None Consults: Consultations 03/29/17 07:24 Consult to Case Management [CONS] Routine Consult to Arts Administrator [CONS] Routine OT Evaluation and Treatment [CONS] Routine PT Evaluation and Treatment [CONS] Routine Recommended Follow-up Testing/Procedures: Cardiology and Endocrinology Hospital Course: Patient was primarily admitted for medical management of panic attack. Patient carried no history of psychiatric illness but it appeared she was in a lot of stress according to her estranged . On presentation, she was also found positive for orthostasis. Patient was medically treated with supportive care. Overnight, the patient improved significantly. However on this admission she was observed having intermittent and or episodic bursts with heart rate as high as 140s and the highest was 170s. Along that line , the patient also experienced bradycardia. Her heart rate dropped in to the low 50s and slowly came back up to normal range. These abnormal episodes were observed by me and captured on telemetry. At those events, patient denied any symptoms. She was given a trial of propranolol 60 mg by mouth 1 and she responded well with this treatment. With ambulation and activities, her heart was observed to have gone up only as high as 115. And with rest, her heart rate usually went back to the normal range. In the setting of her abnormal heart rates, she was found to have abnormal thyroid panel. Patient carried no history of thyroid abnormalities. She denied taking exogenous thyroid medications. She further denied taking any other cardiac meds such as amiodarone that could be possibly affecting her heart rate. Her TSH was normal but her FT4, but Total T3 and FT3 were both elevated. Her MRI however was negative for any intra-cranial abnormalities. Patient will visit with endocrinology outpatient for further workup or follow up related to her abnormal thyroid panel. Her hospital course was uncomplicated. The rest of her chronic medical illness remained stable during this admission. Unfortunately we were not able to obtain the read on her Holter monitor. Therefore, she will be discharged today to follow-up with her primary care doctor. Any additional treatment or testing will based on the result of her Holter report. Patient was advised not to return to work until she sees her primary care doctor. She was further advised to come back or seek immediate care should her symptoms persist or get worse. Patient expressed understanding and in agreement with the plans as discussed above. All questions were answered. - Patient Instructions Diet: Usual Diet as Tolerated Activity: As Tolerated Driving: Do Not Drive Showering/Bathing: May Shower Notify Provider of: Increased Pain, Nausea and/or Vomiting Other/Special Instructions: - Please take all medications as directed. - Make sure you keep your appointment as scheduled. - Check your blood pressure 3x a day for 1-2 week. Show log and on your follow up appointment with the media center specialist. - You may not return to work until you see your family doctor for further eval. - Call your doctor or come back if your symptoms persist or get worse - Discharge Plan Prescriptions/Med Rec: Propranolol HCl [Propranolol] 80 mg PO DAILY #30 cap.sa.24h Home Medications: Home Meds SUMAtriptan [Imitrex Pen Injector Kit] 6 mg SQ ASDIRECTED #1 ml 07/14/14 [Rx] Albuterol Inhaler. 2 inh PO Q4HR PRN 07/19/16 [History] Potassium Chloride 10 meq PO DAILY 03/28/17 [History] atorvaSTATin Calcium [Atorvastatin Calcium] 10 mg PO DAILY 03/28/17 [History] Magnesium 250 mg PO DAILY 03/29/17 [History] Propranolol HCl [Propranolol] 80 mg PO DAILY #30 cap.sa.24h 03/30/17 [Rx] Patient Handouts: Smoking Cessation, Tips for Success, [id number], How to Take Your Blood Pressure, [id number], Form - Blood Pressure Record Sheet, Managing Your High Blood Pressure Referrals: Eli Grant NP [Primary Care Provider] - 04/02/17 1:30 pm (Please check in at 1:00pm.) Osmin Faith [Ordering Only Provider] - 06/21/17 11:45 am (*Appointment times are in Central Standard Time.* Youth Liaison Officer appointment. Bring your holter monitor records with you to this appointment. [facility] building. Come to hospital register at 11:30 am, labs at 11:45 am, echocardiogram at 12: 00 noon, and appointment at 1:00 pm.) Michela Bhardwaj MD [Ordering Only Provider] - 05/25/17 2:00 pm (*Appointment is in Central Standard Time.* Endocrinology appointment. Please arrive at the main [facility] ([facility] [address]) 30 minutes early for registration.) - Discharge Summary/Plan Comment DC Time >30 min.: Yes (45 mins) Discharge Summary/Plan Comment: Discharge to Home - General Info Date of Service: 03/30/17 Admission Dx/Problem (Free Text: Admission Diagnosis/Problem Admission Diagnosis/Problem Urinary tract infection Subjective Update: Follow Up Functional Status: Reports: Pain Controlled, Tolerating Diet, Ambulating, Urinating. Denies: New Symptoms - Review of Systems General: Denies: Fever, Weakness, Fatigue, Malaise HEENT: Reports: No Symptoms Pulmonary: Denies: Shortness of Breath, Pleuritic Chest Pain, Cough, Wheezing Cardiovascular: Denies: Chest Pain, Palpitations, Dyspnea on Exertion, Orthopnea , Edema, Lightheadedness Gastrointestinal: Denies: Abdominal Pain, Nausea, Vomiting Genitourinary: Reports: No Symptoms Skin: Denies: Cyanosis, Mottled, Pallor, Diaphoresis Neurological: Denies: Confusion, Dizziness, Headache, Numbness, Seizure, Syncope , Tingling, Difficulty Walking, Weakness, Gait Disturbance Psychiatric: Denies: Depression, Mood Lability, Anxiety, Agitation, Cravings, Hallucinations, Suicidal Ideation Systems Review Comment: No overnight or acute issues. No anxiety or panic attack. Her heart rate was pretty much controlled. No reported significant bursts in her heart rate. - Patient Data Vitals - Most Recent: Last Vital Signs Temp 36.8 C 03/30/17 08:05 Pulse 97 03/30/17 08:05 Resp 12 03/30/17 08:05 BP 126/71 03/30/17 08:05 Pulse Ox 100 03/30/17 08:05 Weight - Most Recent: 86.296 kg I&O - Last 24 hours: Intake & Output 03/29/17 03/30/17 03/30/17 22:59 06:59 14:59 Intake Total 2150 800 240 Output Total 1000 1900 Balance 1150 -1100 240 Lab Results - Last 24 hrs: Laboratory Results - last 24 hr 03/30/17 03/30/17 Range/Units 06:25 06:25 WBC 7.45 (3.98-10.04) K/mm3 RBC 4.83 (3.98-5.22) M/mm3 Hgb 14.4 (11.2-15.7) gm/L Hct 43.3 (34.1-44.9) % MCV 89.6 (79.4-94.8) fl MCH 29.8 (25.6-32.2) pg MCHC 33.3 (32.2-35.5) g/dl RDW Std Deviation 42.7 (36.4-46.3) fL Plt Count 283 (182-369) K/mm3 MPV 11.4 (9.4-12.3) fl Neut % (Auto) 74.5 H (34.0-71.1) % Lymph % (Auto) 15.0 L (19.3-51.7) % [place] % (Auto) 7.2 (4.7-12.5) % Eos % (Auto) 2.3 (0.7-5.8) Baso % (Auto) 0.9 (0.1-1.2) % Neut # (Auto) 5.54 (1.56-6.13) K/mm3 Lymph # (Auto) 1.12 L (1.18-3.74) K/mm3 [place] # (Auto) 0.54 H (0.24-0.36) K/mm3 Eos # (Auto) 0.17 (0.04-0.36) K/mm3 Baso # (Auto) 0.07 (0.01-0.08) K/mm3 Sodium 138 (136-145) mEq/L Potassium 4.0 (3.5-5.1) mEq/L Chloride 106 (98-107) mEq/L Carbon Dioxide 24 (21-32) mEq/L Anion Gap 12.0 (5-15) BUN 9 (7-18) mg/dL Creatinine 0.7 (0.55-1.02) mg/dL Est Cr Clr Drug Dosing 97.65 mL/min Estimated GFR (MDRD) > 60 (>60) mL/min BUN/Creatinine Ratio 12.9 L (14-18) Glucose 91 (74-106) mg/dL Calcium 8.5 (8.5-10.1) mg/dL Magnesium 1.9 (1.8-2.4) mg/dl Med Orders - Current: Current Medications Acetaminophen (Tylenol) 650 mg PO Q4H PRN PRN Reason: Pain (Mild 1-3)/fever Hydrocodone Bitart/Acetaminophen (Merom 325-5 Mg) 1 tab PO Q4H PRN PRN Reason: Pain (moderate 4-6) Last Admin: 03/29/17 21:05 Dose: 1 tab Albuterol/Ipratropium (Duoneb 3.0-0.5 Mg/3 Ml) 3 ml NEB Q4H PRN PRN Reason: Shortness Of Breath/wheezing Bisacodyl (Dulcolax) 5 mg PO DAILY PRN PRN Reason: Constipation Docusate Sodium (Colace) 100 mg PO BID PRN PRN Reason: Constipation Hydralazine HCl (Apresoline) 20 mg IVPUSH Q4H PRN PRN Reason: Hypertension Hydromorphone HCl (Dilaudid) 1 mg IVPUSH Q4H PRN PRN Reason: Pain Last Admin: 03/29/17 11:34 Dose: 1 mg Promethazine HCl 12.5 mg/ (Sodium Chloride) 50.5 mls @ 100 mls/hr IV Q6H PRN PRN Reason: Nausea/Vomiting Lorazepam (Ativan) 1 mg IVPUSH Q4H PRN PRN Reason: Anxiety Lorazepam (Ativan) 2 mg IVPUSH Q4H PRN PRN Reason: Seizures Lorazepam (Ativan) 1 mg IV Q6H PRN PRN Reason: Anxiety Magnesium Oxide (Magnesium Oxide) 400 mg PO DAILY [facility] Last Admin: 03/30/17 12:29 Dose: 400 mg Metoprolol Tartrate (Lopressor) 5 mg IVPUSH Q4H PRN PRN Reason: Tachycardia Non-Formulary Medication (Albuterol Inhaler.) 2 inh PO Q4HR PRN PRN Reason: Shortness of Breath Ondansetron HCl (Zofran) 4 mg IV Q6H PRN PRN Reason: Nausea/Vomiting Atorvastatin Calcium (10 Mg) 0 each PO DAILY [facility] Last Admin: 03/30/17 12:09 Dose: Not Given Polyethylene Glycol (Miralax) 17 gm PO DAILY PRN PRN Reason: Constipation Potassium Chloride (Klor-Con 10) 0 meq PO DAILY [facility] Last Admin: 03/30/17 12:30 Dose: 10 meq Propranolol HCl (Inderal La) 80 mg PO DAILY [facility] Last Admin: 03/30/17 12:29 Dose: 80 mg Senna/Docusate Sodium (Senna Plus) 1 tab PO BID PRN PRN Reason: Constipation Temazepam (Restoril) 15 mg PO BEDTIME PRN PRN Reason: Sleep Last Admin: 03/29/17 21:05 Dose: 15 mg Trimethoprim/Sulfamethoxazole (Septra Ds) 1 tab PO BID [facility] Last Admin: 03/30/17 12:29 Dose: 1 tab Discontinued Medications Diphtheria/Tetanus/Acell Pertussis (Adacel) 0.5 ml IM .ONCE ONE Stop: 03/30/17 12:15 Gadobenate Dimeglumine (Multihance) 20 ml IVPUSH ONETIME ONE Stop: 03/30/17 10:20 Last Admin: 03/30/17 11:29 Dose: 20 ml Lidocaine HCl (Xylocaine-Mpf 1%) Confirm Administered Dose 2 mls @ as directed .ROUTE .STK-MED ONE Stop: 03/28/17 22:07 Last Admin: 03/29/17 02:13 Dose: Not Given Sodium Chloride (Normal Saline) 1,000 mls @ 999 mls/hr IV ONETIME ONE Stop: 03/28/17 23:38 Last Admin: 03/28/17 22:42 Dose: 999 mls/hr Sodium Chloride (Normal Saline) 1,000 mls @ 999 mls/hr IV ONETIME ONE Stop: 03/29/17 00:58 Last Admin: 03/29/17 00:05 Dose: 999 mls/hr Sodium Chloride (Normal Saline) 1,000 mls @ 250 mls/hr IV ASDIRECTED LAVINIA Last Admin: 03/29/17 06:37 Dose: 250 mls/hr Sodium Chloride (Normal Saline) 250 mls @ 999 mls/hr IV .BOLUS ONE Stop: 03/30/17 12:28 Metoprolol Tartrate (Lopressor) 2.5 mg IVPUSH ONETIME ONE Stop: 03/30/17 12:12 Midodrine (Midodrine) 5 mg PO ONETIME ONE Stop: 03/30/17 12:14 Non-Formulary Medication (Sumatriptan [Imitrex Pen Injector Kit]) 6 mg SQ ASDIRECTED LAVINIA Potassium Chloride (Klor-Con 10) 10 meq PO DAILY [facility] Last Admin: 03/29/17 09:53 Dose: Not Given Propranolol HCl (Inderal La) 60 mg PO ONETIME ONE Stop: 03/29/17 13:16 Last Admin: 03/29/17 13:23 Dose: 60 mg Sodium Chloride (Normal Saline) 20 ml IV ONETIME ONE Stop: 03/30/17 10:20 Last Admin: 03/30/17 11:30 Dose: 20 ml Trimethoprim/Sulfamethoxazole (Septra Ds) 1 tab PO ONETIME ONE Stop: 03/29/17 00:42 Last Admin: 03/29/17 00:58 Dose: 1 tab - Exam General: Reports: Alert, Oriented, Cooperative, No Acute Distress HEENT: Reports: Pupils Equal, Pupils Reactive, EOMI, Mucous Membr. Moist/[place], Other (poor dentition) Neck: Reports: Supple, Trachea Midline, No Thyromegaly Lungs: Reports: Clear to Auscultation, Normal Respiratory Effort Cardiovascular: Reports: Regular Rate, Regular Rhythm GI/Abdominal Exam: Normal Bowel Sounds, Soft, Non-Tender, No Organomegaly, No Distention, No Abnormal Bruit, No Mass (Female) Exam: Deferred Rectal (Female) Exam: Deferred Back Exam: Reports: Normal Inspection, Decreased Range of Motion Extremities: Normal Inspection, Normal Range of Motion, Non-Tender, No Pedal Edema, Normal Capillary Refill Skin: Reports: Warm, Dry, Intact Neurological: Reports: No New Focal Deficit Psy/Mental Status: Reports: Alert, Normal Affect, Normal Mood. Denies: Labile Mood, Agitated, Suicidal Ideation, Homicidal Ideation, Hallucinations, Withdrawal Symptoms *Q Meaningful Use (DIS) - VTE *Q VTE Criteria *Q: - Stroke *Q Stroke Criteria *Q: - AMI *Q AMI Criteria *Q:
== END 2017-03-30 13:40 | disposition home or self-care (01) ==
LOC: JD.ED 21:03 → JD.MS 03-29 01:07
PROVIDERS: ADMIT Internal Medicine; ATTEND Internal Medicine
DX: F41.0 Panic disorder [episodic paroxysmal anxiety] (principal); I49.5 Sick sinus syndrome; I95.1 Orthostatic hypotension; E78.00 Pure hypercholesterolemia, unspecified; M54.9 Dorsalgia, unspecified; G89.29 Other chronic pain; G43.909 Migraine, unspecified, not intractable, without status migrainosus; Z98.51 Tubal ligation status; Z98.890 Other specified postprocedural states; F17.210 Nicotine dependence, cigarettes, uncomplicated
CPT/HCPCS: 36415; 36600; 70553; 71020; 80048; 80053; 80306; 81001; 81025; 82803; 83735; 83880; 84439; 84443; 84480; 84481; 84484; 85025; 85379; 85610; 85730; 86140; 87086; 93005; 96360; 96361; 96374; 96376; 97161; 97165; 99285; A9270; A9577; G0378; J1170; J7040; 87088; 99217; 99219; G0379

== ENCOUNTER 2017-04-05 09:45 | Emergency (ER) | payer OTHER, BC ==
[2017-04-05] MEDS ORDERED: Sodium Chloride 0.9% 10 ML Syringe FLUSH PRN (10:14)
[2017-04-05] MEDS ORDERED: Sodium Chloride 0.9% 1,000 ML IV SCH (10:30)
--- NOTE | 2017-04-05 11:28 | CR ---
Chest: Portable view of the chest was obtained. Comparison: Previous chest x-ray of 03/28/17. Heart size and mediastinum are normal. Lungs are clear. Bony structures are grossly intact. Impression: 1. Nothing acute is appreciated on portable chest x-ray. Diagnostic code #1
--- NOTE | 2017-04-05 12:30 | EDM.PDOC ---
ED HPI GENERAL MEDICAL PROBLEM - General Chief Complaint: Cardiovascular Problem Stated Complaint: RACING HEART/CHILLS AND SWEATS Time Seen by Provider: 04/05/17 10:22 Source of Information: Reports: Patient, RN Notes Reviewed - History of Present Illness INITIAL COMMENTS - FREE TEXT/NARRATIVE: 46-year-old lady comes in with palpitations, nonspecific dizziness, night sweats. This is been going on for about 10-14 days. She was in the hospital about a week ago she did follow-up at the clinic Wednesday 3 days ago, had her Inderal was switched over to metoprolol 50 mg twice daily. She's not vomiting. She has not been having diarrhea. No chest or abdominal pain at this time. She states she did wear a Holter monitor last week. She has an appointment for echocardiogram in 2 days. She has an appointment to see a It Desktop Support Technician. - Related Data Allergies Allergy/AdvReac Type Severity Reaction Status Date / Time bacitracin Allergy Rash Verified 04/05/17 10:03 [From Neosporin ([id number])] bacitracin zinc Allergy Rash Verified 04/05/17 10:03 [From Neosporin ([id number])] neomycin sulfate Allergy Rash Verified 04/05/17 10:03 [From Neosporin ([id number])] polymyxin B Allergy Rash Verified 04/05/17 10:03 [From Neosporin ([id number])] Home Meds: Home Meds SUMAtriptan [Imitrex Pen Injector Kit] 6 mg SQ ASDIRECTED #1 ml 07/14/14 [Rx] Albuterol Inhaler. 2 inh PO Q4HR PRN 07/19/16 [History] Potassium Chloride 10 meq PO DAILY 03/28/17 [History] atorvaSTATin Calcium [Atorvastatin Calcium] 10 mg PO DAILY 03/28/17 [History] Magnesium 250 mg PO DAILY 03/29/17 [History] Propranolol HCl [Propranolol] 80 mg PO DAILY #30 cap.sa.24h 03/30/17 [Rx] Past Medical History - Past Health History Medical/Surgical History: Denies Medical/Surgical History Cardiovascular History: Reports: High Cholesterol Respiratory History: Reports: Asthma MATERIAL CONTROL SPECIALIST History: Reports: Musculoskeletal History: Reports: Back Pain, Chronic Neurological History: Reports: Migraines Oncologic (Cancer) History: Reports: Malignant Melanoma Other Oncologic History: had mole removed from left side of face - Past Surgical History HEENT Surgical History: Reports: Oral Surgery Female Surgical History: Reports: Tubal Ligation Oncologic Surgical History: Reports: Other (See Below) Dermatological Surgical History: Reports: None Social & Family History - Family History Family Medical History: Noncontributory - Tobacco Use Smoking Status *Q: Former Smoker Years of Tobacco use: 15 Packs/Tins Daily: 0.3 Used Tobacco, but Quit: No Second Hand Smoke Exposure: No - Caffeine Use Caffeine Use: Reports: Soda Other Caffeine Use: reports that she drinks 2 liters of coke every day - Alcohol Use Days Per Week of Alcohol Use: 1 Number of Drinks Per Day: 0 Total Drinks Per Week: 0 - Recreational Drug Use Recreational Drug Use: No - Living Situation & Occupation Living situation: Reports: (), with Family (daughter) Occupation: Employed ([employer]) ED ROS GENERAL - Review of Systems Review Of Systems: See Below HEENT: Denies: Sinus Problem, Throat Pain Respiratory: Denies: Shortness of Breath Cardiovascular: Denies: Chest Pain Endocrine: Reports: Fatigue GI/Abdominal: Denies: Abdominal Pain, Diarrhea, Vomiting : Reports: No Symptoms Musculoskeletal: Reports: Other (mild generalized achiness) Skin: Reports: Other (patient states she does sweat a lot). Denies: Rash Neurological: Reports: Dizziness. Denies: Numbness, Tingling, Trouble Speaking , Difficulty Walking, Weakness ED EXAM, GENERAL - Physical Exam Exam: See Below General Appearance: Alert, No Apparent Distress Eye Exam: Bilateral Eye: PERRL Nose: Normal Inspection Throat/Mouth: Normal Inspection, Normal Oropharynx Head: Atraumatic. No: Facial Swelling Neck: Supple, Full Range of Motion. No: Lymphadenopathy (L), Lymphadenopathy (R ) Respiratory/Chest: No Respiratory Distress, Lungs Clear, Normal Breath Sounds Cardiovascular: Tachycardia (mild, heart rate 101 on admission to ED, 94 at time of EKG) GI/Abdominal: Soft, Non-Tender Back Exam: Normal Inspection. No: CVA Tenderness (L), CVA Tenderness (R) Extremities: Normal Inspection, Normal Range of Motion. No: Pedal Edema, Leg Pain Neurological: Alert, Oriented, No Motor/Sensory Deficits Psychiatric: Normal Affect, Normal Mood Skin Exam: Warm, Dry, Normal Color EKG INTERPRETATION EKG Date: 04/05/17 Rhythm: NSR [place]: Normal P-Wave: Present QRS: Normal ST-T: Normal Course - Vital Signs Last Recorded V/S: Last Vital Signs Temp 97.4 F 04/05/17 09:59 Pulse 101 H 04/05/17 09:59 Resp 16 04/05/17 09:59 BP Pulse Ox 100 04/05/17 09:59 - Orders/Labs/Meds Orders: Active Orders 24 hr Category Date Time Status EKG 12 Lead [EKG Documentation Completion] [] STAT Care 04/05/17 10:14 Active Peripheral IV Care [RC] . DIRECTED Care 04/05/17 10:14 Active Sodium Chloride 0.9% [Normal Saline] 1,000 ml Med 04/05/17 10:30 Active IV ONETIME Sodium Chloride 0.9% [Saline Flush] Med 04/05/17 10:14 Active 10 ml FLUSH ASDIRECTED PRN Peripheral IV Insertion Adult [OM.PC] Stat Oth 04/05/17 10:14 Ordered Medication Orders Sodium Chloride (Normal Saline) 1,000 mls @ 999 mls/hr IV ONETIME [facility] Last Admin: 04/05/17 10:52 Dose: 999 mls/hr Sodium Chloride (Saline Flush) 10 ml FLUSH ASDIRECTED PRN PRN Reason: Keep Vein Open Last Admin: 04/05/17 10:24 Dose: 10 ml Labs: Laboratory Tests 04/05/17 04/05/17 04/05/17 Range/Units 10:00 10:00 10:45 WBC 9.49 (3.98-10.04) K/mm3 RBC 5.51 H (3.98-5.22) M/mm3 Hgb 16.5 H (11.2-15.7) gm/L Hct 48.7 H (34.1-44.9) % MCV 88.4 (79.4-94.8) fl MCH 29.9 (25.6-32.2) pg MCHC 33.9 (32.2-35.5) g/dl RDW Std Deviation 41.6 (36.4-46.3) fL Plt Count 334 (182-369) K/mm3 MPV 11.7 (9.4-12.3) fl Neut % (Auto) 76.6 H (34.0-71.1) % Lymph % (Auto) 13.8 L (19.3-51.7) % [place] % (Auto) 8.3 (4.7-12.5) % Eos % (Auto) 0.5 L (0.7-5.8) Baso % (Auto) 0.7 (0.1-1.2) % Neut # (Auto) 7.26 H (1.56-6.13) K/mm3 Lymph # (Auto) 1.31 (1.18-3.74) K/mm3 [place] # (Auto) 0.79 H (0.24-0.36) K/mm3 Eos # (Auto) 0.05 (0.04-0.36) K/mm3 Baso # (Auto) 0.07 (0.01-0.08) K/mm3 Sodium 137 (136-145) mEq/L Potassium 4.0 (3.5-5.1) mEq/L Chloride 102 (98-107) mEq/L Carbon Dioxide 28 (21-32) mEq/L Anion Gap 11.0 (5-15) BUN 10 (7-18) mg/dL Creatinine 0.9 (0.55-1.02) mg/dL Est Cr Clr Drug Dosing 75.95 mL/min Estimated GFR (MDRD) > 60 (>60) mL/min BUN/Creatinine Ratio 11.1 L (14-18) Glucose 144 H (74-106) mg/dL Calcium 9.8 (8.5-10.1) mg/dL Total Bilirubin 0.5 (0.2-1.0) mg/dL AST 21 (15-37) U/L ALT 24 (14-59) U/L Alkaline Phosphatase 79 (46-116) U/L Troponin I < 0.017 (0.00-0.056) ng/mL Total Protein 7.7 (6.4-8.2) g/dl Albumin 4.0 (3.4-5.0) g/dl Globulin 3.7 gm/dL Albumin/Globulin Ratio 1.1 (1-2) TSH 3rd Generation 2.152 (0.358-3.74) uIU/mL Urine Color Yellow (Yellow) Urine Appearance Clear (Clear) Urine pH 6.0 (5.0-8.0) Ur Specific [place] 1.025 (1.005-1.030) Urine Protein 1+ H (Negative) Urine Glucose (UA) Negative (Negative) Urine Ketones Negative (Negative) Urine Occult Blood Negative (Negative) Urine Nitrite Negative (Negative) Urine Bilirubin Negative (Negative) Urine Urobilinogen 0.2 (0.2-1.0) Ur Leukocyte Esterase Trace H (Negative) Meds: Medications Generic Name Dose Route Start Last Admin Trade Name Freq PRN Reason Stop Dose Admin Sodium Chloride 1,000 mls @ 999 mls/hr 04/05/17 10:30 04/05/17 10:52 Normal Saline IV 999 mls/hr ONETIME LAVINIA Administration Sodium Chloride 10 ml 04/05/17 10:14 04/05/17 10:24 Saline Flush FLUSH 10 ml ASDIRECTED PRN Administration Keep Vein Open - Re-Assessments/Exams Free Text/Narrative Re-Assessment/Exam: 04/05/17 12:37 troponin, other labs did come back normal. TSH also normal. Heart rate has been running in the 80s and 90s primarily while awaiting lab work. As noted she already does have an order in for echocardiogram which is scheduled for 2 days from now. He does have an appointment to see a bench manager. she has cut way back on her caffeine. She is trying to quit smoking. Discharge instr. as documented. Departure - Departure Time of Disposition: 12:29 Disposition: Home, Self-Care 01 Condition: Fair Clinical Impression: Dizziness, Palpitations Referrals: Eli Grant, GLUE DRIER OPERATOR [Primary Care Provider] - Forms: ED Department Discharge Additional Instructions: continue metoprolol 50 mg twice daily as prescribed last Wednesday, drink plenty of water to maintain hydration, echocardiogram this Wednesday as planned, See It Desktop Support Technician as planned, follow-up at the clinic in the meantime as needed, return to ED if symptoms worsening in any way - My Orders Last 24 Hours: My Active Orders 04/05/17 10:14 EKG 12 Lead [EKG Documentation Completion] [RC] STAT Peripheral IV Care [RC] . DIRECTED Sodium Chloride 0.9% [Saline Flush] 10 ml FLUSH ASDIRECTED PRN Peripheral IV Insertion Adult [OM.PC] Stat 04/05/17 10:30 Sodium Chloride 0.9% [Normal Saline] 1,000 ml IV ONETIME - Assessment/Plan Last 24 Hours: My Active Orders 04/05/17 10:14 EKG 12 Lead [EKG Documentation Completion] [RC] STAT Peripheral IV Care [RC] . DIRECTED Sodium Chloride 0.9% [Saline Flush] 10 ml FLUSH ASDIRECTED PRN Peripheral IV Insertion Adult [OM.PC] Stat 04/05/17 10:30 Sodium Chloride 0.9% [Normal Saline] 1,000 ml IV ONETIME
[2017-04-05 12:33] VITALS: BP 119/85
== END 2017-04-05 12:41 | disposition home or self-care (01) ==
LOC: JD.ED 09:45
DX: R00.2 Palpitations (principal); R42 Dizziness and giddiness; J45.909 Unspecified asthma, uncomplicated; Z88.8 Allergy status to other drugs, medicaments and biological substances; Z79.899 Other long term (current) drug therapy; Z87.891 Personal history of nicotine dependence
CPT/HCPCS: 36415; 71010; 80053; 81003; 84443; 84484; 85025; 93005; 96360; 99285; J7040; J7050

== ENCOUNTER 2017-04-07 17:32 | Emergency (ER) | payer OTHER, BC ==
[2017-04-07] MEDS ORDERED: Adenosine 6 MG/2 ML SDV ONE (17:50)
[2017-04-07] MEDS ORDERED: Sodium Chloride 0.9% 1,000 ML ONE (17:51)
[2017-04-07] MEDS ORDERED: Adenosine 12 MG/4 ML SDV ONE (17:51)
[2017-04-07] MEDS ORDERED: LORazepam 2 MG/ML MDV IVPUSH ONE (17:57)
[2017-04-07] MEDS ORDERED: LORazepam 2 MG/ML MDV ONE (18:01)
[2017-04-07] MEDS ORDERED: Diltiazem 25 MG/5 ML SDV IVPUSH ONE ×3 (18:11→18:49)
[2017-04-07] MEDS ORDERED: Sodium Chloride 0.9% 1,000 ML IV ONE (18:32)
[2017-04-07] MEDS ORDERED: Adenosine 6 MG/2 ML SDV IVPUSH ONE (18:42)
[2017-04-07] MEDS ORDERED: Adenosine 12 MG/4 ML SDV IVPUSH ONE (18:42)
[2017-04-07] MEDS ORDERED: HYDROmorphone 0.5 MG/0.5 ML Syringe IVPUSH ONE (18:44)
--- NOTE | 2017-04-07 19:10 | EDM.PDOC ---
<KiyaAlan Miguel - Last Filed: 04/07/17 20:01> ED HPI GENERAL MEDICAL PROBLEM - General Chief Complaint: Cardiovascular Problem Stated Complaint: HAS HAD 2 SEIZURES TODAY Time Seen by Provider: 04/07/17 17:42 Source of Information: Reports: Patient, RN Notes Reviewed - History of Present Illness INITIAL COMMENTS - FREE TEXT/NARRATIVE: 46-year-old female who presents to the ED with palpitations, tachycardia. She does have history of what sounds like some prior episodes of SVT. She did have a one or 2 day admission to our hospital about 10 days ago for episodes of tachycardia. Please refer to those admission documents for details. She then was seen here in the ED petitions and history of "night sweats. At that time her heart rate was running in the 100-110 range initially and then did slow to the 80s and 90s after IV fluid while awaiting lab work. She did have an echocardiogram done at the clinic today. She states she had been feeling well with no further palpitations until sudden onset of quite severe palpitations and moderate dizziness about an hour ago after the echocardiogram had been completed. There's been no recent nausea vomiting or diarrhea. She states she does drink plenty of water. She had been on metoprolol 50 mg twice a day. That was recently increased to 75 mg twice a day. she does have an appointment to see a ic designer gate arrays about 10-14 days from now. - Related Data Allergies Allergy/AdvReac Type Severity Reaction Status Date / Time bacitracin Allergy Rash Verified 04/07/17 17:53 [From Neosporin ([id number])] bacitracin zinc Allergy Rash Verified 04/07/17 17:53 [From Neosporin ([id number])] neomycin sulfate Allergy Rash Verified 04/07/17 17:53 [From Neosporin ([id number])] polymyxin B Allergy Rash Verified 04/07/17 17:53 [From Neosporin ([id number])] Home Meds: Home Meds SUMAtriptan [Imitrex Pen Injector Kit] 6 mg SQ ASDIRECTED #1 ml 07/14/14 [Rx] Albuterol Inhaler. 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: Musculoskeletal History: Reports: Back Pain, Chronic Neurological History: Reports: Migraines Oncologic (Cancer) History: Reports: Malignant Melanoma Other Oncologic History: had mole removed from left side of face - Past Surgical History HEENT Surgical History: Reports: Oral Surgery Female Surgical History: Reports: Tubal Ligation Oncologic Surgical History: Reports: Other (See Below) Dermatological Surgical History: Reports: None Social & Family History - Family History Family Medical History: Noncontributory - Tobacco Use Smoking Status *Q: Former Smoker Years of Tobacco use: 15 Packs/Tins Daily: 0.3 Used Tobacco, but Quit: Yes Month Tobacco Last Used: March Second Hand Smoke Exposure: No - Caffeine Use Caffeine Use: Reports: None Other Caffeine Use: reports that she drinks 2 liters of coke every day - Alcohol Use Days Per Week of Alcohol Use: 1 Number of Drinks Per Day: 0 Total Drinks Per Week: 0 - Recreational Drug Use Recreational Drug Use: No - Living Situation & Occupation Living situation: Reports: (), with Family (daughter) Occupation: Employed ([employer]) [facility] [employer] [facility] - Review of Systems Review Of Systems: See Below Constitutional: Reports: Diaphoresis (patient has had by her history a lot of night sweats this past 2 weeks). Denies: Fever, Chills HEENT: Denies: Sinus Problem, Throat Pain Respiratory: Denies: Shortness of Breath, Wheezing, Pleuritic Chest Pain Cardiovascular: Reports: Chest Pain (patient did have some chest tightness on arrival,once she was lying on the cot minimal anterior chest discomfort), Lightheadedness (when standing), Palpitations GI/Abdominal: Denies: Abdominal Pain, Nausea, Vomiting Musculoskeletal: Reports: Back Pain (patient does have history of chronic low back pain) Skin: Denies: Rash Neurological: Reports: Dizziness. Denies: Numbness, Tingling, Trouble Speaking ED EXAM, GENERAL - Physical Exam Exam: See Below General Appearance: Alert, Anxious Eye Exam: Bilateral Eye: PERRL Throat/Mouth: Normal Inspection, Normal Oropharynx Head: Atraumatic. No: Facial Swelling Neck: Supple, Full Range of Motion, Other Respiratory/Chest: No Respiratory Distress (no JVD), Lungs Clear, Normal Breath Sounds Cardiovascular: Tachycardia (rate 209 on arrival) GI/Abdominal: Soft, Non-Tender Back Exam: No: CVA Tenderness (L), CVA Tenderness (R) Extremities: Normal Inspection. No: Pedal Edema, Leg Pain Neurological: Alert, Oriented, No Motor/Sensory Deficits Skin Exam: Warm, Dry, Normal Color (at the time of my exam shortly after arrival skin is warm and dry) EKG INTERPRETATION EKG Date: 04/07/17 Rhythm: Other (SVT, rate 205) QRS: Other (narrow complex) ST-T: Other (there is ST depression anteriorly, T-wave inversion inferiorly and laterally) Course - Vital Signs Last Recorded V/S: Last Vital Signs Temp Pulse 87 04/07/17 21:30 Resp 22 H 04/07/17 21:30 BP 109/64 04/07/17 21:26 Pulse Ox 100 04/07/17 21:30 - Orders/Labs/Meds Orders: Active Orders 24 hr Category Date Time Status Chest 1V Frontal [CR] Stat Exams 04/07/17 19:43 Taken CALCIUM, IONIZED [REF] Stat Lab 04/07/17 20:00 Received Labs: Laboratory Tests 04/07/17 04/07/17 Range/Units 17:47 17:47 WBC 11.50 H (3.98-10.04) K/mm3 RBC 5.45 H (3.98-5.22) M/mm3 Hgb 16.3 H (11.2-15.7) gm/L Hct 47.5 H (34.1-44.9) % MCV 87.2 (79.4-94.8) fl MCH 29.9 (25.6-32.2) pg MCHC 34.3 (32.2-35.5) g/dl RDW Std Deviation 40.8 (36.4-46.3) fL Plt Count 334 (182-369) K/mm3 MPV 12.5 H (9.4-12.3) fl Neut % (Auto) 70.2 (34.0-71.1) % Lymph % (Auto) 16.3 L (19.3-51.7) % Brown % (Auto) 12.3 (4.7-12.5) % Eos % (Auto) 0.6 L (0.7-5.8) Baso % (Auto) 0.3 (0.1-1.2) % Neut # (Auto) 8.07 H (1.56-6.13) K/mm3 Lymph # (Auto) 1.87 (1.18-3.74) K/mm3 Brown # (Auto) 1.42 H (0.24-0.36) K/mm3 Eos # (Auto) 0.07 (0.04-0.36) K/mm3 Baso # (Auto) 0.04 (0.01-0.08) K/mm3 Sodium 139 (136-145) mEq/L Potassium 3.6 (3.5-5.1) mEq/L Chloride 104 (98-107) mEq/L Carbon Dioxide 24 (21-32) mEq/L Anion Gap 14.6 (5-15) BUN 10 (7-18) mg/dL Creatinine 1.0 (0.55-1.02) mg/dL Est Cr Clr Drug Dosing 70.91 mL/min Estimated GFR (MDRD) 60 (>60) mL/min BUN/Creatinine Ratio 10.0 L (14-18) Glucose 115 H (74-106) mg/dL Calcium 9.7 (8.5-10.1) mg/dL Magnesium 1.8 (1.8-2.4) mg/dl Total Bilirubin 0.5 (0.2-1.0) mg/dL AST 25 (15-37) U/L ALT 24 (14-59) U/L Alkaline Phosphatase 77 (46-116) U/L Troponin I < 0.017 (0.00-0.056) ng/mL Total Protein 7.3 (6.4-8.2) g/dl Albumin 3.7 (3.4-5.0) g/dl Globulin 3.6 gm/dL Albumin/Globulin Ratio 1.0 (1-2) Meds: Medications Discontinued Medications Generic Name Dose Route Start Last Admin Trade Name Wilder PRN Reason Stop Dose Admin Acetaminophen 975 mg 04/07/17 19:27 04/07/17 19:30 Tylenol PO 04/07/17 19:28 975 mg NOW ONE Administration Adenosine Confirm 04/07/17 17:50 04/07/17 18:33 Adenocard Administered 04/07/17 17:51 Not Given Dose 6 mg .ROUTE .STK-MED ONE Adenosine Confirm 04/07/17 17:51 04/07/17 18:33 Adenocard Administered 04/07/17 17:52 Not Given Dose 12 mg .ROUTE .STK-MED ONE Adenosine 6 mg 04/07/17 18:42 04/07/17 17:50 Adenocard IVPUSH 04/07/17 18:43 6 mg NOW ONE Administration Adenosine 12 mg 04/07/17 18:42 04/07/17 18:02 Adenocard IVPUSH 04/07/17 18:43 12 mg NOW ONE Administration Diltiazem HCl 15 mg 04/07/17 18:11 04/07/17 18:15 Diltiazem IVPUSH 04/07/17 18:12 15 mg ONETIME ONE Administration Diltiazem HCl 10 mg 04/07/17 18:28 04/07/17 18:41 Diltiazem IVPUSH 04/07/17 18:29 10 mg ONETIME ONE Administration Diltiazem HCl 20 mg 04/07/17 18:49 04/07/17 18:56 Diltiazem IVPUSH 04/07/17 18:50 20 mg ONETIME ONE Administration Diltiazem HCl 30 mg 04/07/17 20:20 04/07/17 20:27 Cardizem PO 04/07/17 20:21 Not Given ONETIME ONE Diltiazem HCl 30 mg 04/07/17 20:25 04/07/17 20:25 Cardizem PO 04/07/17 20:26 30 mg ONETIME ONE Administration Diltiazem HCl Confirm 04/07/17 20:27 04/07/17 20:27 Cardizem Administered 04/07/17 20:28 Not Given Dose 60 mg .ROUTE .STK-MED ONE Hydromorphone HCl 0.5 mg 04/07/17 18:44 04/07/17 18:45 Dilaudid IVPUSH 04/07/17 18:45 0.5 mg ONETIME ONE Administration Sodium Chloride Confirm 04/07/17 17:51 04/07/17 18:33 Normal Saline Administered 04/07/17 17:52 Not Given Dose 1,000 mls @ as directed .ROUTE .STK-MED ONE Sodium Chloride 1,000 mls @ 999 mls/hr 04/07/17 18:32 04/07/17 17:50 Normal Saline IV 04/07/17 19:32 999 mls/hr ONETIME ONE Administration Sodium Chloride 1,000 mls @ 150 mls/hr 04/07/17 19:15 04/07/17 18:55 Normal Saline IV 150 mls/hr ASDIRECTED LAVINIA Administration Lorazepam 0.5 mg 04/07/17 17:57 04/07/17 17:59 Ativan IVPUSH 04/07/17 17:58 0.5 mg ONETIME ONE Administration Lorazepam Confirm 04/07/17 18:01 04/07/17 18:33 Ativan Administered 04/07/17 18:02 Not Given Dose 2 mg .ROUTE .STK-MED ONE - Re-Assessments/Exams Free Text/Narrative Re-Assessment/Exam: 04/07/17 20:05. as noted in history initial heart rate was 209 on arrival. The rate had slowed to around 200 at time of my exam. IV of normal saline was started to run 1 L over one hour, O2 supplied at 2 L nasal cannula. Adenosine 6 mg IV resulted in conversion to sinus rhythm, rate in the 120s initially slowing down to about 104 at time of EKG.Unfortunately after about 2 minutes she went back into the SVT with a rate in the 190s. She was than given adenosine 12 mg IV which once again did convert her down to sinus tachycardia rate in the 105-110 range. After about 2 minutes she went back into SVT once again rate around 190. She was then given diltiazem 15 mg IV. That slowed her rate into the 180s and then eventually did convert her to normal sinus rhythm for just a very brief period of time and then back to SVT rate in the 180s. She was then given further dosage of diltiazem 10 mg IV which once again did convert her to sinus rhythm now in the 90s but only for a very short period of time. She was given a follow-up bolus of diltiazem 10 mg IV followed by a second 10 mg bolus 5 minutes later. With that she did convert back into sinus rhythm which she now has maintained for over one half hour. Current heart rate 91, blood pressure 112/91. She is resting comfortably. She initially was having low back pain and spasms given Dilaudid 0.5 mg IV for that followed by Tylenol 975 mg by mouth. Due to moderate anxiety on arrival she was given Ativan 0.5 mg IV shortly after arrival. It is now well past change of shift. Not totally clear at this time if patient needs to be admitted at this time versus perhaps going home after some further loading of diltiazem. Care has been transferred to Dr Bill Huertas. labs including magnesium and ionized calcium are pending. Departure - Departure Disposition: Home, Self-Care 01 Clinical Impression: Paroxysmal supraventricular tachycardia Prescriptions: Diltiazem HCl [Diltiazem ER] 120 mg PO DAILY #30 cap.er.deg Instructions: Paroxysmal Supraventricular Tachycardia, [id number] Referrals: Eli Grant, [facility] [Primary Care Provider] - Forms: ED Department Discharge Additional Instructions: 1. Continue your current medications 2. Add diltiazem as prescribed in the morning 3. Follow up with cardiology as planned 4. Return to the Emergency Department if you have additional episodes of heart racing that don't resolve within a few minutes, or if you have chest pain, shortness of breath, or any other concerning symptoms. - My Orders Last 24 Hours: My Active Orders 04/07/17 19:43 Chest 1V Frontal [CR] Stat 04/07/17 20:00 CALCIUM, IONIZED [REF] Stat - Assessment/Plan Last 24 Hours: My Active Orders 04/07/17 19:43 Chest 1V Frontal [CR] Stat 04/07/17 20:00 CALCIUM, IONIZED [REF] Stat <Louie Huertas - Last Filed: 04/07/17 23:49> Course - Re-Assessments/Exams Free Text/Narrative Re-Assessment/Exam: 04/07/17 23:48 Patient was observed for several hours and remained in normal sinus rhythm after interventions described above. She strongly prefers to go home rather than be admitted for observation. Her labs are normal, including a negative troponin. She has the ability to return to the ED should tachycardia recur. Meanwhile, will rx diltiazem ER. Discussed return precautions. She has EP f/u scheduled in [place] for mid-April. Departure - Departure Time of Disposition: 21:57
[2017-04-07] MEDS ORDERED: Sodium Chloride 0.9% 1,000 ML IV SCH (19:15)
[2017-04-07] MEDS ORDERED: Acetaminophen 325 MG Tab PO ONE (19:27)
[2017-04-07] MEDS ORDERED: Diltiazem IR 30 MG Tab PO ONE (20:20)
[2017-04-07] MEDS ORDERED: Diltiazem IR 60 MG Tab PO ONE (20:25)
[2017-04-07] MEDS ORDERED: Diltiazem IR 60 MG Tab ONE (20:27)
[2017-04-07 21:32] VITALS: BP 109/64
--- NOTE | 2017-04-09 10:32 | CR ---
Chest: Portable view of the chest was obtained. Comparison: Previous chest x-ray of 04/05/17. Heart size and mediastinum are within normal limits. Lungs are clear. Bony structures are grossly intact. Impression: 1. Nothing acute is identified on portable chest x-ray. Diagnostic code #1
== END 2017-04-07 22:16 | disposition home or self-care (01) ==
LOC: JD.ED 17:32
DX: I47.1 Supraventricular tachycardia (principal); E78.00 Pure hypercholesterolemia, unspecified; J45.909 Unspecified asthma, uncomplicated; Z98.51 Tubal ligation status; Z85.820 Personal history of malignant melanoma of skin; Z87.891 Personal history of nicotine dependence; Z79.899 Other long term (current) drug therapy; Z88.1 Allergy status to other antibiotic agents
CPT/HCPCS: 71010; 80053; 82330; 83735; 84484; 85025; 96361; 96374; 96375; 96376; 99284; A9270; J0153; J1170; J2060; J3490; J7040; 36415; 99285

== ENCOUNTER 2017-04-09 19:36 | Emergency (ER) | payer OTHER, BC ==
[2017-04-09] MEDS ORDERED: Adenosine 12 MG/4 ML SDV ONE (19:49)
[2017-04-09] MEDS ORDERED: Diltiazem 25 MG/5 ML SDV ONE (19:49)
[2017-04-09] MEDS ORDERED: Adenosine 6 MG/2 ML SDV ONE (19:49)
--- NOTE | 2017-04-09 19:51 | EDM.PDOC ---
ED HPI GENERAL MEDICAL PROBLEM - General Chief Complaint: Cardiovascular Problem Stated Complaint: RACING HEART Time Seen by Provider: 04/09/17 19:40 Source of Information: Reports: Patient History Limitations: Reports: No Limitations - History of Present Illness INITIAL COMMENTS - FREE TEXT/NARRATIVE: 46-year-old female presents to the ED with acute onset of palpitations central chest pressure or heaviness and dizziness lightheadedness. She states came on about 1815 hrs. tonight. This is the third episode this week. Monitor shows a SVT at 217/min.he was started on Cardizem this week when after second presentation with SVT. She complains of chills prior to the onset of these attacks. Suggest this is hormone driven. I looked back in the notes I could not see that a TSH of been drawn. Blood preasure is 137/112.she breaks out in a cool clammy sweat at the onset of the tachyarrhythmia. While in the department she converted back to sinus tachycardia at 1 32/m and was settling down to 1 23/ m when she jumped back up into the SVT greater than 212. Again she converted back to sinus within a few minutes and then within 2-3 minutes once again jumped back up into an SVT at 209-211/min.therefore consideration of possible pheochromocytoma is in the Differential diagnosis. Onset: Today Onset Date: 04/09/17 Onset Time: 18:15 Duration: Minutes: Location: Reports: Chest (palpitations dizziness lightheadedness associated pressure in the chest and shortness of breath.) Quality: Reports: Pressure Severity: Moderate (central chest.) Improves with: Reports: None Worsens with: Reports: Other (standing up.) Context: Denies: Activity, Exercise, Lifting, Sick Contact, Trauma, Other Associated Symptoms: Reports: Chest Pain, Diaphoresis (breaks out in a cool clammy sweat diaphoresis), Malaise, Weakness, Other. 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: Musculoskeletal History: Reports: Back Pain, Chronic Neurological History: Reports: Migraines Oncologic (Cancer) History: Reports: Malignant Melanoma Other Oncologic History: had mole removed from left side of face - Past Surgical History HEENT Surgical History: Reports: Oral Surgery Female Surgical History: Reports: Tubal Ligation Oncologic Surgical History: Reports: Other (See Below) Dermatological Surgical History: Reports: None Social & Family History - Family History Family Medical History: Noncontributory - Tobacco Use Smoking Status *Q: Former Smoker Years of Tobacco use: 15 Packs/Tins Daily: 0.3 Used Tobacco, but Quit: Yes Month Tobacco Last Used: March Second Hand Smoke Exposure: No - Caffeine Use Caffeine Use: Reports: None Other Caffeine Use: reports that she drinks 2 liters of coke every day - Alcohol Use Days Per Week of Alcohol Use: 1 Number of Drinks Per Day: 0 Total Drinks Per Week: 0 - Recreational Drug Use Recreational Drug Use: No - Living Situation & Occupation Living situation: Reports: , Alone, with Family (daughter) Occupation: Employed ([employer]) ED ROS GENERAL - Review of Systems Review Of Systems: See Below Constitutional: Reports: Chills, Malaise, Weakness, Fatigue, Diaphoresis. Denies: Fever, Night Sweats (at onset of SVT.), Decreased Appetite, Weight Loss , Weight Gain HEENT: Reports: No Symptoms Respiratory: Reports: Shortness of Breath. Denies: Wheezing (mild), Pleuritic Chest Pain, Cough, Sputum, Hemoptysis, Other Cardiovascular: Reports: Chest Pain, Lightheadedness, Palpitations. Denies: Blood Pressure Problem (chest pressure heaviness.), Claudication, Dyspnea on Exertion, Edema, Orthopnea Endocrine: Reports: Fatigue GI/Abdominal: Reports: No Symptoms : Reports: Frequency Musculoskeletal: Reports: No Symptoms Skin: Reports: Diaphoresis Neurological: Reports: No Symptoms Psychiatric: Reports: No Symptoms (cool and clammy.) Hematologic/Lymphatic: Reports: No Symptoms Immunologic: Reports: No Symptoms ED EXAM, GENERAL - Physical Exam Exam: See Below Exam Limited By: No Limitations General Appearance: Alert, WD/WN, Mild Distress Eye Exam: Bilateral Eye: Normal Inspection Throat/Mouth: Normal Inspection, Normal Lips, Normal Teeth, Normal Gums, Normal Oropharynx Head: Atraumatic, Normocephalic Neck: Normal Inspection, Supple, Non-Tender, Full Range of Motion. No: Carotid Bruit, Lymphadenopathy (R), Thyromegaly Respiratory/Chest: No Respiratory Distress, Lungs Clear, Normal Breath Sounds, No Accessory Muscle Use Cardiovascular: Normal Peripheral Pulses, Regular Rate, Rhythm, No Edema, No Gallop, No Murmur Peripheral Pulses: 2+: Posterior Tibial (L), Posterior Tibial (R), Dorsalis Pedis (L), Dorsalis Pedis (R) GI/Abdominal: Normal Bowel Sounds, Soft, Non-Tender, No Organomegaly, No Distention, Other (mildly be obese. Numerous abdominal striae.) Back Exam: Normal Inspection, Full Range of Motion. No: CVA Tenderness (L), CVA Tenderness (R) Extremities: Normal Inspection, Normal Range of Motion, Non-Tender, No Pedal Edema, Normal Capillary Refill Neurological: Alert, Oriented, CN II-XII Intact, Normal Cognition Psychiatric: Normal Affect, Normal Mood Skin Exam: Warm, Dry, Intact, Normal Color, No Rash ED CARDIOLOGY PROCEDURES - Cardioversion Time of Cardioversion: 21:21 Indication: SVT (at greater than 2 20/m with hypotension.) Patient Counseled: Yes Informed Consent Obtained: Yes Preparation: IV Access, Airway Management Equipment, Supplemental Oxygen, Monitor, Reversal Agents Available Pre-Procedure Sedation: Midazolam, Fentanyl Cardioversion Energy: 50J Sync Mode: Monophasic Successful: Yes (but only transiently. She remained in a sinus tachycardia at 1 15/m for abo) Number of Attempts: 1 Patient Condition Post Cardioversion: Unchanged Post Cardioversion EKG Reviewed: Yes EKG INTERPRETATION EKG Date: 04/09/17 Time: 19:50 Rhythm: Other (SVT at 220/m.) Rate (Beats/Min): 220 [place]ble: Normal P-Wave: Absent QRS: Other (Q-wave present in aVL.left ventricular hypertrophy pattern.) ST-T: Other (ST depression throughout V3 to V6. Also present in the leads 2,3 and aVF.likely rate related.) QT: Normal Course - Vital Signs Last Recorded V/S: Last Vital Signs Temp 35.9 C 04/09/17 19:43 Pulse 179 H 04/09/17 23:21 Resp 20 04/09/17 20:13 BP 00/00 L 04/09/17 23:21 Pulse Ox 100 04/09/17 20:13 - Orders/Labs/Meds Orders: Active Orders 24 hr Category Date Time Status EKG Documentation Completion [RC] STAT Care 04/09/17 19:50 Active METANEPHRINES, PLASMA FREE [REF] Stat Lab 04/09/17 19:50 Received Amiodarone In Dextrose,Iso-Osm [Nexterone in Dextrose Med 04/09/17 20:15 Active 360 MG/200 ML] 360 mg in 200 ml IV ASDIRECTED Sodium Chloride 0.9% [Normal Saline] 1,000 ml Med 04/09/17 20:15 Active IV ASDIRECTED Medication Orders Sodium Chloride (Normal Saline) 1,000 mls @ 200 mls/hr IV ASDIRECTED LAVINIA Last Admin: 04/09/17 20:11 Dose: 200 mls/hr Amiodarone HCl/Dextrose (Nexterone In Dextrose 360 Mg/200 Ml) 360 mg in 200 mls @ 33.333 mls/hr IV ASDIRECTED LAVINIA PRN Reason: Protocol Last Admin: 04/09/17 20:28 Dose: 33.333 mls/hr Labs: Laboratory Tests 04/09/17 04/09/17 Range/Units 19:50 19:50 WBC 16.14 H (3.98-10.04) K/mm3 RBC 5.66 H (3.98-5.22) M/mm3 Hgb 16.9 H (11.2-15.7) gm/L Hct 49.4 H (34.1-44.9) % MCV 87.3 (79.4-94.8) fl MCH 29.9 (25.6-32.2) pg MCHC 34.2 (32.2-35.5) g/dl RDW Std Deviation 41.8 (36.4-46.3) fL Plt Count 368 (182-369) K/mm3 MPV 11.8 (9.4-12.3) fl Neutrophils % (Manual) 88 H (40-60) % Band Neutrophils % 0 (0-10) % Lymphocytes % (Manual) 9 L (20-40) % Atypical Lymphs % 0 % Monocytes % (Manual) 3 (2-10) % Eosinophils % (Manual) 0 L (0.7-5.8) % Basophils % (Manual) 0 L (0.1-1.2) Platelet Estimate Adequate RBC Morph Comment Normal Sodium 140 (136-145) mEq/L Potassium 3.7 (3.5-5.1) mEq/L Chloride 102 (98-107) mEq/L Carbon Dioxide 24 (21-32) mEq/L Anion Gap 17.7 H (5-15) BUN 8 (7-18) mg/dL Creatinine 1.0 (0.55-1.02) mg/dL Est Cr Clr Drug Dosing TNP Estimated GFR (MDRD) 60 (>60) mL/min BUN/Creatinine Ratio 8.0 L (14-18) Glucose 120 H (74-106) mg/dL Calcium 9.8 (8.5-10.1) mg/dL Magnesium 1.7 L (1.8-2.4) mg/dl Total Bilirubin 0.7 (0.2-1.0) mg/dL AST 36 (15-37) U/L ALT 28 (14-59) U/L Alkaline Phosphatase 80 (46-116) U/L CK-MB (CK-2) 8.3 H (0-3.6) ng/ml Troponin I < 0.017 (0.00-0.056) ng/mL C-Reactive Protein < 0.2 (<1.0) mg/dL NT-Pro-B Natriuret Pep 191 H (0-125) pg/mL Total Protein 7.6 (6.4-8.2) g/dl Albumin 3.8 (3.4-5.0) g/dl Globulin 3.8 gm/dL Albumin/Globulin Ratio 1.0 (1-2) TSH 3rd Generation 3.700 (0.358-3.74) uIU/mL Meds: Medications Generic Name Dose Route Start Last Admin Trade Name Freq PRN Reason Stop Dose Admin Sodium Chloride 1,000 mls @ 200 mls/hr 04/09/17 20:15 04/09/17 20:11 Normal Saline IV 200 mls/hr ASDIRECTED LAVINIA Administration Amiodarone HCl/Dextrose 360 mg in 200 mls @ 33.333 mls/hr 04/09/17 20:15 20:28 Nexterone In Dextrose 360 Mg/200 Ml IV 33.333 mls/hr ASDIRECTED LAVINIA Administration Protocol Discontinued Medications Generic Name Dose Route Start Last Admin Trade Name Freq PRN Reason Stop Dose Admin Adenosine Confirm 04/09/17 19:49 04/09/17 21:23 Adenocard Administered 04/09/17 19:50 Not Given Dose 6 mg .ROUTE .STK-MED ONE Adenosine Confirm 04/09/17 19:49 04/09/17 21:23 Adenocard Administered 04/09/17 19:50 Not Given Dose 12 mg .ROUTE .STK-MED ONE Amiodarone HCl Confirm 04/09/17 21:02 04/09/17 22:00 Cordarone Administered 04/09/17 21:03 Not Given Dose 150 mg .ROUTE .STK-MED ONE Diltiazem HCl Confirm 04/09/17 19:49 04/09/17 22:00 Diltiazem Administered 04/09/17 19:50 Not Given Dose 25 mg .ROUTE .STK-MED ONE Diltiazem HCl 5 mg 04/09/17 22:31 04/09/17 22:36 Diltiazem IVPUSH 04/09/17 22:32 5 mg ONETIME ONE Administration Esmolol HCl 40 mg 04/09/17 22:51 04/09/17 23:10 Esmolol IVPUSH 04/09/17 22:52 40 mg ONETIME ONE Administration Fentanyl 100 mcg 04/09/17 20:39 04/09/17 21:28 Sublimaze IVPUSH 04/09/17 20:40 Not Given ONETIME ONE Fentanyl Confirm 04/09/17 21:05 04/09/17 21:58 Sublimaze Administered 04/09/17 21:06 Not Given Dose 100 mcg .ROUTE .STK-MED ONE Fentanyl 50 mcg 04/09/17 21:37 04/09/17 20:55 Sublimaze IVPUSH 04/09/17 21:38 50 mcg ONETIME ONE Administration Fentanyl 50 mcg 04/09/17 20:59 04/09/17 20:59 Sublimaze IVPUSH 04/09/17 21:00 50 mcg ONETIME ONE Administration Fentanyl 50 mcg 04/09/17 21:19 04/09/17 21:19 Sublimaze IVPUSH 04/09/17 21:20 50 mcg ONETIME ONE Administration Hydromorphone HCl 0.5 mg 04/09/17 23:18 04/09/17 23:32 Dilaudid IVPUSH 04/09/17 23:19 0.5 mg ONETIME ONE Administration Amiodarone HCl 150 mg/ 103 mls @ 600 mls/hr 04/09/17 19:54 04/09/17 20:01 Dextrose/Water IV 04/09/17 20:04 Not Given .BOLUS ONE Amiodarone HCl/Dextrose Confirm 04/09/17 19:58 04/09/17 20:01 Nexterone In Dextrose 150 Mg/100 Ml Administered 04/09/17 19:59 150 mg Dose Administration 100 mls @ as directed IV .STK-MED ONE Amiodarone HCl/Dextrose Confirm 04/09/17 20:20 04/09/17 21:47 Nexterone In Dextrose 360 Mg/200 Ml Administered 04/09/17 20:21 Not Given Dose 360 mg in 200 mls @ as directed .ROUTE .STK-MED ONE Amiodarone HCl/Dextrose 150 mg 100 mls @ 400 mls/hr 04/09/17 21:38 04/09/17 21:49 / Premix IV 04/09/17 21:52 400 mls/hr NOW ONE Administration Protocol Diltiazem HCl 125 mg/ Sodium 125 mls @ 5 mls/hr 04/09/17 22:45 Chloride IV ASDIRECTED LAVINIA 5 MG/HR Metoprolol Tartrate 5 mg 04/09/17 23:13 04/09/17 23:21 Lopressor IVPUSH 04/09/17 23:14 5 mg ONETIME ONE Administration Midazolam HCl 5 mg 04/09/17 20:39 04/09/17 21:47 Versed 1 Mg/Ml IVPUSH 04/09/17 20:40 Not Given ONETIME ONE Ondansetron HCl 4 mg 04/09/17 23:18 04/09/17 23:32 Zofran IVPUSH 04/09/17 23:19 4 mg ONETIME ONE Administration - Radiology Interpretation Free Text/Narrative:: 46-year-old female presents to the ED with acute onset of palpitations and evidence of SVT on the monitor at greater than 227/m. Sodium of third time she presented to the ED this week with similar type episodes. She was started on Cardizem 120 mg extended release and she is currently on metoprolol 75 mg twice a day. She continues to experience hot flash sensations prior to the onset of the SVT suggesting possible hormonal stimulation such as pheochromocytoma or rarely thyroid storm. Associated symptoms are that of pressure and heaviness in her central chest dizziness lightheadedness and mild shortness of breath. And diaphoresis. As I was interviewing her initially she converted back to sinus rhythm at 130s but within 5-10 minutes convert back into SVT at greater than 2 20/m. She then within 2 minutes converted on her own back into a sinus tach in the 230s. Then within a few minutes went back up into an SVT at greater than 220. Plan I will start her on amiodarone drip at 150 mg IV bolus over 10 minutes and then 60 mg per hour. Labs to be done to include a TSH and a free metanephrines unfortunately this is a send out. - Re-Assessments/Exams Free Text/Narrative Re-Assessment/Exam: 04/09/17 20:14 Patient continues to go in and out of SVT and a sinus tachycardia. Current weight is 200/m BP is dropped to 8254 IV as normal saline at 200 mils per hour. 04/09/17 20:28remains an SVT at 204/m. BP was 76 and is now 84/60. She has some amiodarone infusion running at 60 mg per hour. If she doesn't convert her subtle within the next 5-10 minutes as she is asymptomatic at present will consider cardioversion. 04/09/17 20:40 patient is tolerating the SVT at 206/m quite well. BP remains 95/ 80. She has no pressure in her chest. It to be obtained. I explained the procedure to the patient. Plan will be to use Versed and fentanyl to facilitate sedation for the procedure. 04/09/17 21:10Patient has been given 5 mg of Versed and 100 g of fentanyl over a period of 5-10 minutes to provide conscious sedation. She then converted back to sinus rhythm without injury intervention into the [id number] range. Will adopt a wait and see approach this time as to whether we will need to proceed with cardioversion. 04/09/17 21:25 Labs are back. White count is 16.14 with a 88% neutrophil count no bands. Hemoglobin is 16.9 with hematocrit of 49.4 suggesting some degree of hemoconcentration. Sodium 140 potassium 3.7. Chloride 12 bicarbonate 24. And a gap is elevated at 17.7. Creatinine is 1.0 EGFR is greater than 60. Glucose 120. Magnesium is slightly low at 1.7. CK-MB fraction is elevated at 8.3 troponin is less than 0.017 C-reactive protein is less than 0.2. BNP is 191. TSH is normal at 3.7.patient continues to go in and out of SVT. Did cardioverter 1 at 50 J and she converted to sinus rhythm at 102-1 15/m for proximal be 2-1/2 minutes before she went back into SVT. Plan I'm going to give her another 150 mg of amiodarone IV over next 10 minutes and will cardiovert her again if needed. At present she is in sinus rhythm at 107/min. 04/09/17 22:00: I spoke with Dr. Posey compensation and benefits administrator at [facility] in [place] and he felt that the patient would be better served by going away to [place] where EP studies or more readily available at present they do not have adequate personnel to do this. I then spoke with 1 call at [facility] in [place] and then was able to spot speak to hospitalist and Dr Hastings from the department of cardiology. they have accepted care at that facility. Therefore she will be transported by airplane as it is too far for him is to transport i.e. leaving the community for 2 lengthy period of time. For the most part she has remained in sinus rhythm at 87-90/m and BP has returned to the 95 systolic range. BPs have been all over the map in terms as high as 226/196 and was very difficult to establish an accurate blood pressure therefore I've asked CR days to come and start an arterial line. 04/09/17 22:32Continues to have bouts of SVT into the 180s to 190s. I'm going to give her Cardizem 5 mg IV bolus and then start her on a Cardizem drip at 5 mg per hour as well. She continues on the amiodarone infusion 60 mg per hour as well. Arterial line has been now established. Give us accurate blood pressure recordings. 04/09/17 22:39 patient went back into a significant rapid SVT at 1 90/m within a minute of receiving the Cardizem 5 mg IV bolus. 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 She has now returned to a sinus rhythm at 87/min. 04/09/17 22:49 she goes in and out of SVT. The arterial line now established a drop in blood pressure when she goes into SVT. Fairly at 1 83/m with a blood pressure of 73/49. Therefore she remains highly unstable. She is tolerating the low blood pressure without issue. 04/09/17 22:58 BP is stable if she is in sinus rhythm. Currently in sinus rhythm at 86/m BP is 118/72. When she goes in and out of SVT her pressures will drop as low as 60/40. 04/09/17 23:08 has gone back into the SVT at 1 80/m with a drop to blood pressure to 65/44. She's been in this rhythm for about 5 minutes. Will try Esmolol 500 mcg/kg which will work out to around 40 mg IV bolus over1 minute. If she has a WP W-like syndrome this may provoke an accelerated rate transiently. 04/09/17 23:14E Esmolol did nothing in terms of reducing the rate or speaking it up. Will give her Lopressor 5 mg IV and see what effect it has. 04/09/17 23:16 she converted back to sinus rhythm before the Lopressor could be given. Heart rate is now 90 with a BP of 111/75. 04/09/17 23:18 patient complaining of generalized aches and pains from lying in bed so long. Since she has a long airplane ride ahead of her I will give her Dilaudid 0.5 mg IV with Zofran 4 mg IV for pain relief. 04/09/17 23:22 Once again she has gone back into SVT at 1 83/m with a drop in blood pressure to 60/55.will try Lopressor 5 mg IV bolus now. 04/09/17 23:27Lopressor did nothing to affect the SVT rate. Departure - Departure Time of Disposition: 00:00 Disposition: DC/Tfer to Acute Hospital 02 Reason for Transfer *Q: Other Condition: Fair Clinical Impression: Tachycardia Referrals: Eli Grant NP [Primary Care Provider] - Forms: ED Department Discharge Additional Instructions: patient transferred to [facility] in [place] for cardiology assessment and management. It is felt she requires EP studies and likely ablation due to suspect accessory pathway in her heart. She has remained stable for the last 15 minutes perhaps the last dose of Lopressor 5 mg did have an effect. Heart rate at time of discharge is 64 per minute with BP 123/68. - My Orders Last 24 Hours: My Active Orders 04/09/17 19:50 EKG Documentation Completion [RC] STAT METANEPHRINES, PLASMA FREE [REF] Stat 04/09/17 20:15 Amiodarone In Dextrose,Iso-Osm [Nexterone in Dextrose 360 MG/200 ML] 360 mg in 200 ml IV ASDIRECTED Sodium Chloride 0.9% [Normal Saline] 1,000 ml IV ASDIRECTED - Assessment/Plan Last 24 Hours: My Active Orders 04/09/17 19:50 EKG Documentation Completion [RC] STAT METANEPHRINES, PLASMA FREE [REF] Stat 04/09/17 20:15 Amiodarone In Dextrose,Iso-Osm [Nexterone in Dextrose 360 MG/200 ML] 360 mg in 200 ml IV ASDIRECTED Sodium Chloride 0.9% [Normal Saline] 1,000 ml IV ASDIRECTED
[2017-04-09] MEDS ORDERED: Amiodarone 150 MG in Dextrose 5% in Water 100 ML IV ONE ×2 (19:54)
[2017-04-09] MEDS ORDERED: Sodium Chloride 0.9% 1,000 ML IV SCH (20:15)
[2017-04-09] MEDS ORDERED: fentaNYL 100 MCG/2 ML SDV IVPUSH ONE ×4 (20:39→21:37)
[2017-04-09] MEDS ORDERED: Midazolam 1 MG/ML 5 ML SDV IVPUSH ONE (20:39)
[2017-04-09] MEDS ORDERED: Midazolam 1 MG/ML 5 ML SDV ONE (20:56)
[2017-04-09] MEDS ORDERED: Amiodarone 150 MG/3 ML SDV ONE (21:02)
[2017-04-09] MEDS ORDERED: fentaNYL 100 MCG/2 ML SDV ONE (21:05)
[2017-04-09] MEDS ORDERED: Amiodarone In Dextrose,Iso-Osm 150 MG in Premix Bag 1 BAG IV ONE ×2 (21:38)
[2017-04-09] MEDS ORDERED: Diltiazem 25 MG/5 ML SDV IVPUSH ONE (22:31)
[2017-04-09] MEDS ORDERED: Diltiazem 125 MG in Sodium Chloride 0.9% 100 ML IV SCH (22:45)
[2017-04-09] MEDS ORDERED: Esmolol 100 MG/10 ML SDV IVPUSH ONE (22:51)
[2017-04-09] MEDS ORDERED: Metoprolol Tartrate 5 MG/5 ML SDV IVPUSH ONE (23:13)
[2017-04-09] MEDS ORDERED: HYDROmorphone 0.5 MG/0.5 ML Syringe IVPUSH ONE (23:18)
[2017-04-09] MEDS ORDERED: Ondansetron 4 MG/2 ML SDV IVPUSH ONE (23:18)
--- NOTE | 2017-04-09 23:19 | PCM.SN ---
- Free Text/Narrative Note: 04-09-17 Start 2215 End 2300 Arterial line placement Called to ED for a patient needing an arterial line due to labile blood pressures. Upon arrival the patient was drowsy, resting in bed with her at the bedside. NIBP readings were variable and the patient had been "going in and out of SVT" while she had been here. The arterial line and placement were discussed with both the patient and . Consent obtained from the . Time out performed. Site cleansed with chloraprep. Left radial artery located with ultrasound with sterile sleeve. Skin localized with 1% lidocaine. A 20ga 1.75" arrow catheter was used to cannulate the left radial artery x1 attempt under ultrasound guidance. Sterily connected to primed arterial line tubing with pulsitile blood return. Secured with sterile tegaderm with chg. Taped multiple times to hand and wrist to secure catheter and tubing. Arterial line zeroed and blood pressure value appeared on the monitor with a good waveform. Patient tolerated the procedure well. The patient had been having runs of SVT during the procedure but would eventually convert back to SR on her own. Defibulator pads we already connected. Celso Guillory CRNA
[2017-04-09 23:26] VITALS: BP 00/00
== END 2017-04-10 00:05 ==
LOC: JD.ED 19:36
DX: R00.0 Tachycardia, unspecified (principal); E78.00 Pure hypercholesterolemia, unspecified; J45.909 Unspecified asthma, uncomplicated; Z88.1 Allergy status to other antibiotic agents; Z79.899 Other long term (current) drug therapy; Z87.891 Personal history of nicotine dependence
CPT/HCPCS: 36415; 36620; 80053; 82553; 83735; 83835; 83880; 84443; 84484; 85025; 86140; 92960; 93005; 96361; 96365; 96366; 96374; 96375; 99152; 99285; J0282; J1170; J2405; J3010; J3490; J7040; J2250